=== PATIENT | female | born 1945 | race Caucasian/White ===

== ENCOUNTER → 2016-06-09 | Outpatient (REF) | payer MEDICARE ==
[~2016-06-09] MED LIST: /PRAV20TA OR; /WARF25TA OR; ACET500C OR; ASPI81TA83 OR; GLUC1000 OR; HCTZ PO; LOPR50TA OR; MULTIVIT OR; TAPENTADOL PO; cipro PO; coumadin; coumadin PO; magnesium PO; potassium PO
[2016-06-09 12:06] LABS: MEAN CORPUSCULAR HEMOGLOBIN 31.8 pg (27.0-33.0); MEAN CORPUSCULAR HGB CONC 33.2 g/dl (32.0-36.5); MEAN CORPUSCULAR VOLUME 95.6 fl (80.0-96.0); RED CELL DISTRIBUTION WIDTH 12.7 % (11.5-14.5); WHITE BLOOD COUNT 6.4 K/mm3 (4.0-10.0)
[2016-06-09 12:36] LABS: ALBUMIN 3.6 GM/DL (3.2-5.2); ALBUMIN/GLOBULIN RATIO 1.13 (1.00-1.93); ALKALINE PHOSPHATASE 60 U/L (45-117); ALT/SGPT 25 U/L (12-78); ANION GAP 9 MEQ/L (8-16); AST/SGOT 20 U/L (15-37); BILIRUBIN,TOTAL 0.6 MG/DL (0.2-1.0); BLOOD UREA NITROGEN 13 MG/DL (7-18); CALCIUM LEVEL 8.4 MG/DL (8.8-10.2); CARBON DIOXIDE LEVEL 30 MEQ/L (21-32); CHLORIDE LEVEL 104 MEQ/L (98-107); CHOLESTEROL LEVEL 141 MG/DL (<200); CREATININE FOR GFR 0.95 MG/DL (0.55-1.02); GLOMERULAR FILTRATION RATE > 60.0 (>39); GLUCOSE, FASTING 105 MG/DL (83-110); POTASSIUM SERUM 3.9 MEQ/L (3.5-5.1); SODIUM LEVEL 143 MEQ/L (136-145); TOTAL PROTEIN 6.8 GM/DL (6.4-8.2); TRIGLYCERIDES LEVEL 71 MG/DL (<150)
== END ==
LOC: M LABDRAW1 11:36
PROVIDERS: ATTEND Nurse Practitioner Family
DX: E78.5 Hyperlipidemia, unspecified (principal); I10 Essential (primary) hypertension; D53.9 Nutritional anemia, unspecified; E11.9 Type 2 diabetes mellitus without complications

== ENCOUNTER → 2016-07-14 | Outpatient (REF) | payer MEDICARE ==
[2016-07-14 13:03] LABS: ALBUMIN 3.5 GM/DL (3.2-5.2); ALBUMIN/GLOBULIN RATIO 1.25 (1.00-1.93); BILIRUBIN,TOTAL 0.5 MG/DL (0.2-1.0); CALCIUM LEVEL 8.2 MG/DL (8.8-10.2); GLOMERULAR FILTRATION RATE 57.9 (>39); POTASSIUM SERUM 3.9 MEQ/L (3.5-5.1); TOTAL PROTEIN 6.3 GM/DL (6.4-8.2)
== END ==
LOC: M LABDRAW1 11:21
PROVIDERS: ATTEND Nurse Practitioner Family
DX: E78.4 Other hyperlipidemia (principal); I10 Essential (primary) hypertension; E11.9 Type 2 diabetes mellitus without complications

== ENCOUNTER → 2017-02-10 | Outpatient (REF) | payer MEDICARE ==
[2017-02-10 12:32] LABS: MEAN CORPUSCULAR HEMOGLOBIN 31.5 pg (27.0-33.0); MEAN CORPUSCULAR HGB CONC 32.6 g/dl (32.0-36.5); MEAN CORPUSCULAR VOLUME 96.6 fl (80.0-96.0); PLATELET COUNT, AUTOMATED 177 10^3/uL (150-450); RED CELL DISTRIBUTION WIDTH 13.3 % (11.5-14.5); WHITE BLOOD COUNT 6.4 10^3/uL (4.0-10.0)
[2017-02-10 13:17] LABS: ALBUMIN 3.6 GM/DL (3.2-5.2); ALBUMIN/GLOBULIN RATIO 1.29 (1.00-1.93); BILIRUBIN,TOTAL 0.6 MG/DL (0.2-1.0); CALCIUM LEVEL 8.5 MG/DL (8.8-10.2); CREATININE FOR GFR 1.03 MG/DL (0.55-1.02); GLOMERULAR FILTRATION RATE 55.9 (>39); POTASSIUM SERUM 3.5 MEQ/L (3.5-5.1); TOTAL PROTEIN 6.4 GM/DL (6.4-8.2)
== END ==
LOC: M LABDRAW1 10:29
PROVIDERS: ATTEND Nurse Practitioner Family
DX: I10 Essential (primary) hypertension (principal); E78.00 Pure hypercholesterolemia, unspecified; E11.9 Type 2 diabetes mellitus without complications; E55.9 Vitamin D deficiency, unspecified

== ENCOUNTER → 2017-06-16 | Outpatient (REF) | payer MEDICARE ==
[2017-06-16 13:19] LABS: HEMATOCRIT 41.7 % (36.0-47.0); HEMOGLOBIN 13.7 g/dl (12.0-16.0); MEAN CORPUSCULAR HEMOGLOBIN 31.4 pg (27.0-33.0); MEAN CORPUSCULAR HGB CONC 32.9 g/dl (32.0-36.5); MEAN CORPUSCULAR VOLUME 95.6 fl (80.0-96.0); PLATELET COUNT, AUTOMATED 214 10^3/uL (150-450); RED BLOOD COUNT 4.36 10^6/uL (4.00-5.40); RED CELL DISTRIBUTION WIDTH 13.3 % (11.5-14.5); WHITE BLOOD COUNT 7.2 10^3/uL (4.0-10.0)
[2017-06-16 13:43] LABS: ESTIMATED AVERAGE GLUCOSE 134 MG/DL (60-110); HEMOGLOBIN A1c 6.3 %
[2017-06-16 13:44] LABS: ALBUMIN 3.6 GM/DL (3.2-5.2); ALBUMIN/GLOBULIN RATIO 1.24 (1.00-1.93); ALKALINE PHOSPHATASE 51 U/L (45-117); ALT/SGPT 30 U/L (12-78); ANION GAP 7 MEQ/L (8-16); AST/SGOT 23 U/L (7-37); BILIRUBIN,TOTAL 0.6 MG/DL (0.2-1.0); BLOOD UREA NITROGEN 16 MG/DL (7-18); CALCIUM LEVEL 8.4 MG/DL (8.8-10.2); CARBON DIOXIDE LEVEL 31 MEQ/L (21-32); CHLORIDE LEVEL 106 MEQ/L (98-107); CHOLESTEROL LEVEL 118 MG/DL (<200); CHOLESTEROL RISK RATIO 1.903 (<5); CPK CREATINE PHOSPHOKINASE 190 U/L (26-192); CREATININE FOR GFR 0.95 MG/DL (0.55-1.30); GLOMERULAR FILTRATION RATE > 60.0 (>39); GLUCOSE, FASTING 108 MG/DL (70-100); HDL CHOLESTEROL 62 MG/DL (>40); LDL CHOLESTEROL 38.6 MG/DL (<100); NON-HDL-C 56 MG/DL; POTASSIUM SERUM 3.7 MEQ/L (3.5-5.1); SODIUM LEVEL 144 MEQ/L (136-145); TOTAL PROTEIN 6.5 GM/DL (6.4-8.2); TRIGLYCERIDES LEVEL 87 MG/DL (<150)
== END ==
LOC: M LABDRAW1 12:51
DX: E78.00 Pure hypercholesterolemia, unspecified (principal); I10 Essential (primary) hypertension; E11.9 Type 2 diabetes mellitus without complications
CPT/HCPCS: 82550

== ENCOUNTER → 2018-05-27 | Outpatient (REF) | payer MEDICARE ==
[2018-05-27 12:54] LABS: ALBUMIN 3.8 GM/DL (3.2-5.2); ALT/SGPT 35 U/L (12-78); BILIRUBIN,TOTAL 0.7 MG/DL (0.2-1.0); BLOOD UREA NITROGEN 20 MG/DL (7-18); CALCIUM LEVEL 8.7 MG/DL (8.8-10.2); CARBON DIOXIDE LEVEL 31 MEQ/L (21-32); CHLORIDE LEVEL 104 MEQ/L (98-107); CHOLESTEROL LEVEL 127 MG/DL (<200); CHOLESTEROL RISK RATIO 1.895 (<5); CREATININE FOR GFR 0.96 MG/DL (0.55-1.30); GLOMERULAR FILTRATION RATE > 60.0 (>39); GLUCOSE, FASTING 127 MG/DL (70-100); HDL CHOLESTEROL 67 MG/DL (>40); LDL CHOLESTEROL 45 MG/DL (<100); NON-HDL-C 60 MG/DL; POTASSIUM SERUM 3.8 MEQ/L (3.5-5.1); SODIUM LEVEL 142 MEQ/L (136-145); TOTAL PROTEIN 6.6 GM/DL (6.4-8.2); TRIGLYCERIDES LEVEL 74 MG/DL (<150)
[2018-05-27 13:54] LABS: HEMOGLOBIN A1c 6.2 %
== END ==
LOC: M LABDRAW1 09:12
PROVIDERS: ATTEND Family Medicine
DX: E11.9 Type 2 diabetes mellitus without complications (principal); E78.2 Mixed hyperlipidemia; I10 Essential (primary) hypertension

== ENCOUNTER → 2018-06-14 | Outpatient (REF) | payer MEDICARE ==
[2018-06-14 13:23] LABS: CREATININE, URINE 64.2 MG/DL; MALB URINE SIEMENS 25.2 MG/L; MAU/CREAT RATIO 39.2 MCG/MG (0.0-30.0)
== END ==
LOC: M SFHCPLAZ 11:27
PROVIDERS: ATTEND Family Medicine
DX: E83.51 Hypocalcemia (principal); E11.9 Type 2 diabetes mellitus without complications
CPT/HCPCS: 36415; 82043; 82330; G0463

== ENCOUNTER → 2019-02-15 | Outpatient (REF) | payer MEDICARE ==
[~2019-02-15] MED LIST changes: -/PRAV20TA OR; -/WARF25TA OR; +COUM1TAB18 OR; +PRAV1TAB39 OR
[2019-02-15 15:44] LABS: CALCIUM LEVEL 9.2 MG/DL (8.8-10.2); CREATININE FOR GFR 1.06 MG/DL (0.55-1.30); GLOMERULAR FILTRATION RATE 53.8 (>39); POTASSIUM SERUM 3.7 MEQ/L (3.5-5.1)
[2019-02-15 15:55] LABS: TOTAL 25(OH) VITAMIN D 18.8 NG/ML (30.0-100.0)
[2019-02-15 16:27] LABS: MALB URINE SIEMENS 61.5 MG/L; MAU/CREAT RATIO 30.5 MCG/MG (0.0-30.0)
== END ==
LOC: M SFHCPLAZ 13:46
PROVIDERS: ATTEND Family Medicine
DX: E11.9 Type 2 diabetes mellitus without complications (principal); I10 Essential (primary) hypertension; R80.9 Proteinuria, unspecified; E83.51 Hypocalcemia
CPT/HCPCS: 36415; 80048; 82043; 82306; 83036; G0463

== ENCOUNTER → 2019-08-08 | Outpatient (REF) | payer MEDICARE ==
[2019-08-08 13:47] LABS: CALCIUM LEVEL 9.3 MG/DL (8.8-10.2); CREATININE FOR GFR 0.98 MG/DL (0.55-1.30); GLOMERULAR FILTRATION RATE 58.7 (>39); POTASSIUM SERUM 3.8 MEQ/L (3.5-5.1)
[2019-08-08 13:59] LABS: MALB URINE SIEMENS 73.7 MG/L; MAU/CREAT RATIO 58.9 MCG/MG (0.0-30.0)
[2019-08-08 15:03] LABS: HEMOGLOBIN A1c 6.1 %
== END ==
LOC: M SFHCPLAZ 11:02
PROVIDERS: ATTEND Family Medicine
DX: E11.9 Type 2 diabetes mellitus without complications (principal); I10 Essential (primary) hypertension

== ENCOUNTER → 2020-02-08 | Outpatient (REF) | payer MEDICARE ==
[2020-02-08 14:34] LABS: BLOOD UREA NITROGEN 18 MG/DL (7-18); CALCIUM LEVEL 9.3 MG/DL (8.8-10.2); CARBON DIOXIDE LEVEL 33 MEQ/L (21-32); CHLORIDE LEVEL 105 MEQ/L (98-107); CHOLESTEROL LEVEL 133 MG/DL (<200); CHOLESTEROL RISK RATIO 1.821 (<5); CREATININE FOR GFR 0.89 MG/DL (0.55-1.30); GLOMERULAR FILTRATION RATE > 60.0 (>39); GLUCOSE, FASTING 80 MG/DL (70-100); HDL CHOLESTEROL 73 MG/DL (>40); LDL CHOLESTEROL 43 MG/DL (<100); NON-HDL-C 60 MG/DL; POTASSIUM SERUM 3.8 MEQ/L (3.5-5.1); SODIUM LEVEL 143 MEQ/L (136-145); TRIGLYCERIDES LEVEL 85 MG/DL (<150)
== END ==
LOC: M SFHCPLAZ 11:13
PROVIDERS: ATTEND Family Medicine
DX: E78.2 Mixed hyperlipidemia (principal); E11.9 Type 2 diabetes mellitus without complications; I10 Essential (primary) hypertension; R80.9 Proteinuria, unspecified
CPT/HCPCS: 36415; 80048; 80061; G0463

== ENCOUNTER → 2020-04-17 | Outpatient (REF) | payer MEDICARE ==
[2020-04-17 17:24] LABS: HEMOGLOBIN A1c 5.7 %
[2020-04-17 17:27] LABS: BLOOD UREA NITROGEN 13 MG/DL (7-18); CALCIUM LEVEL 9.1 MG/DL (8.8-10.2); CARBON DIOXIDE LEVEL 32 MEQ/L (21-32); CHLORIDE LEVEL 105 MEQ/L (98-107); CREATININE FOR GFR 0.89 MG/DL (0.55-1.30); GLOMERULAR FILTRATION RATE > 60.0 (>39); GLUCOSE, FASTING 94 MG/DL (70-100); POTASSIUM SERUM 4.3 MEQ/L (3.5-5.1); SODIUM LEVEL 142 MEQ/L (136-145)
== END ==
LOC: M SFHCPLAZ 14:03
PROVIDERS: ATTEND Family Medicine
DX: E11.9 Type 2 diabetes mellitus without complications (principal); I10 Essential (primary) hypertension
CPT/HCPCS: 36415; 80048; 83036; G0463

== ENCOUNTER → 2020-08-23 | Outpatient (REF) | payer MEDICARE ==
[2020-08-23 12:30] LABS: BLOOD UREA NITROGEN 14 MG/DL (7-18); CALCIUM LEVEL 9.7 MG/DL (8.8-10.2); CARBON DIOXIDE LEVEL 33 MEQ/L (21-32); CHLORIDE LEVEL 107 MEQ/L (98-107); GLOMERULAR FILTRATION RATE > 60.0 (>39); GLUCOSE, FASTING 93 MG/DL (70-100); POTASSIUM SERUM 4.3 MEQ/L (3.5-5.1); SODIUM LEVEL 140 MEQ/L (136-145)
[2020-08-23 12:44] LABS: HEMOGLOBIN A1c 5.7 %
== END ==
LOC: M PLALAB 10:59
PROVIDERS: ATTEND Family Medicine
DX: E11.9 Type 2 diabetes mellitus without complications (principal); I10 Essential (primary) hypertension

== ENCOUNTER → 2020-10-02 | Outpatient (CLI) | payer MEDICARE ==
[~2020-10-02] MED LIST changes: +ISOVUE-300 61% 50ML VIAL As Ordered ONE; +LIDOCAINE 1% MDV 20ML VIAL As Ordered ONE; +TRIAMCINOLONE ACETONIDE SUSP 40 MG/ML VIAL (J3301) As Ordered ONE
--- NOTE | 2020-10-02 17:18 | REP ---
INDICATION: UNILATERAL PRIMARY OSTEOARTHRITIS, LEFT HIP. COMPARISON: None TECHNIQUE: The procedure was performed by EM Baxter, under the direct supervision of Dr. Ferguson. The benefits and risks of the procedure were explained to the patient, and an informed consent was obtained. Directly prior to the start of the procedure, a formal time-out was completed in the procedure room. The left femoral neck joint space was localized using fluoroscopic guidance. The skin was prepped and draped in a sterile fashion. Approximately 5 mL of 1% Lidocaine 10 mg/ml was used as a local anesthetic. Using fluoroscopic guidance, a #22 gauge spinal needle was inserted and advanced into the left femoral neck joint space. Approximately 1 mL of Isovue 300 was injected to verify placement. Six mL of a solution containing 5 mL 1% lidocaine 10 mg/ml and 1 mL Kenalog 40 milligrams/milliliter was injected into the joint space. The needle was removed and hemostasis was achieved. FINDINGS: The patient tolerated the procedure well and there were no immediate complications. IMPRESSION: 1. Fluoroscopically guided left hip intra-articular joint injection. 0.1 minutes of fluoroscopy time was utilized for this procedure. Some fluoroscopic images are performed with last image hold technology. These images require no additional radiation. <Electronically signed by Demetria Marrero > 10/02/20 1500 <Electronically signed by Anthony Ferguson > 10/02/20 8130
== END ==
LOC: M RADPRO 12:49
PROVIDERS: ATTEND Orthopaedic Surgery
DX: M16.12 Unilateral primary osteoarthritis, left hip (principal)
CPT/HCPCS: 20610; 77002; J3301; Q9967

== ENCOUNTER → 2020-12-30 | Outpatient (CLI) | payer MEDICARE ==
[~2020-12-30] MED LIST changes: +ASPI81TA26 PO; +FLON1SPR; -ISOVUE-300 61% 50ML VIAL As Ordered ONE; -LIDOCAINE 1% MDV 20ML VIAL As Ordered ONE; +LISI-898 PO; +METF10004 PO; +METO50TA7 PO; +SIMV40TA20 PO; -TRIAMCINOLONE ACETONIDE SUSP 40 MG/ML VIAL (J3301) As Ordered ONE
[2020-12-30 13:44] LABS: HEMATOCRIT 46.6 % (36.0-47.0); HEMOGLOBIN 14.9 g/dl (12.0-15.5); MEAN CORPUSCULAR HEMOGLOBIN 31.2 pg (27.0-33.0); MEAN CORPUSCULAR VOLUME 97.7 fl (80.0-96.0); PLATELET COUNT, AUTOMATED 213 10^3/uL (150-450); RED BLOOD COUNT 4.77 10^6/uL (4.00-5.40); WHITE BLOOD COUNT 8.9 10^3/uL (4.0-10.0)
[2020-12-30 15:24] LABS: BLOOD UREA NITROGEN 14 MG/DL (7-18); CALCIUM LEVEL 9.1 MG/DL (8.8-10.2); CARBON DIOXIDE LEVEL 31 MEQ/L (21-32); CHLORIDE LEVEL 107 MEQ/L (98-107); CREATININE FOR GFR 0.87 MG/DL (0.55-1.30); GLOMERULAR FILTRATION RATE > 60.0 (>39); GLUCOSE, FASTING 85 MG/DL (70-100); POTASSIUM SERUM 4.4 MEQ/L (3.5-5.1); SODIUM LEVEL 143 MEQ/L (136-145)
== END ==
LOC: M PLALAB 10:44
PROVIDERS: ATTEND Family Medicine
DX: Z01.818 Encounter for other preprocedural examination (principal); E11.9 Type 2 diabetes mellitus without complications
CPT/HCPCS: 36415; 80048; 83036; 85027; 93005; G0463

== ENCOUNTER → 2021-01-04 | Outpatient (CLI) | payer MEDICARE | LOC: M LABSMTC 11:17 | PROVIDERS: ATTEND Anesthesiology | DX: Z20.828 Contact with and (suspected) exposure to other viral communicable diseases (principal); Z11.59 Encounter for screening for other viral diseases ==

== ENCOUNTER 2021-01-09 06:38 | Day surgery (SDC) | payer MEDICARE ==
[~2021-01-09] VITALS: Ht 160 cm; Wt 80.6 kg
[~2021-01-09 06:38] MED LIST changes: +CYCLOPENTOLATE 1% OPHTH SOLN 2 ML BTL OD SCH; +FLURBIPROFEN 0.03% OPHTH SOLN 2.5 ML OD SCH; +PHENYLEPHRINE 2.5% OPHTH SOL 2ML OD SCH; +PHENYLEPHRINE HCL 10 % OPHTH. SOL 5ML OD ONE
[2021-01-09] MEDS ORDERED: LIDOCAINE 1% SDV 5ML VIAL As Ordered ONE (06:46)
[2021-01-09] MEDS ORDERED: LR 1,000 ML IV SCH (07:00)
[2021-01-09] MEDS: TETRACAINE 0.5% OPHTH SOLN 4ML OD SCH ×2 (07:09→07:15)
[2021-01-09] MEDS ORDERED: DUOVISC (0.50ML VISCOAT/0.85ML PROVISC) OPHTH KIT As Ordered ONE (07:30)
[2021-01-09] MEDS ORDERED: METOPROLOL TART 25 MG TABLET PO ONE (07:30)
[2021-01-09] MEDS ORDERED: MAXITROL OPHTH SUSP 5 ML As Ordered ONE (07:31)
[2021-01-09 07:49] VITALS: BP 220/106
[2021-01-09] MEDS ORDERED: MIDAZOLAM INJ 2MG/2ML VIAL (J2250 PER 1MG) As Ordered ONE (08:29)
[2021-01-09] MEDS ORDERED: fentaNYL 100 MCG/2 ML INJECTION (J3010) As Ordered ONE (08:29)
[2021-01-09 10:35] VITALS: BP 200/89
--- NOTE | 2021-01-09 16:18 | ROOPDOC ---
[facility] Report Of Operation Report of Operation PREPROCEDURE DIAGNOSES: Cataract right eye. POSTPROCEDURE DIAGNOSES: Same. PROCEDURE PERFORMED: Cataract extraction with intraocular lens implantation right eye. SURGEON: Sunil Garcia MD ELDER ASSISTANT: None ANESTHESIA: local with intravenous sedation ESTIMATED BLOOD LOSS: None. COMPLICATIONS: None. SPECIMENS REMOVED: None DESCRIPTION OF PROCEDURE: The patient was brought to the operating room and prepped and draped in the usual sterile fashion and an eyelid speculum was inserted in the right eye. A paracentesis was made and the anterior chamber was inflated with non-preserved lidocaine. This was followed by injection of Viscoat. A groove was made in the temporal clear cornea which was tunneled forward with the crescent blade and the anterior chamber was entered with a 2.75 keratome. The cystotome was used to make an incision in the center of the capsule and a continuous curvilinear capsulorhexis was created. The lens was hydrodissected until it was found to rotate freely within the capsular bag. Phacoemulsification was then used to remove the lens in its entirety. Irrigation and aspiration were used to remove residual cortical material. The anterior chamber and capsular bag were reinflated with Provisc and a 19.5 diopter SN60AT lens was injected into the capsular bag using the [place] injector. The lens was dialed into place using the [place] hook. Irrigation and aspiration were used to remove residual viscoelastic. The wound was stromally hydrated until was found to be watertight and the eye was in an appropriate pressure. The eyelid speculum was removed from the eye and Maxitrol drops were placed over the right eye. The patient was transferred to the recovery room in stable condition and will follow up tomorrow. The total CDE was 10.86 SUNIL GARCIA MD Jan 09, 2021 16:18
== END 2021-01-09 10:49 | disposition home or self-care (01) ==
LOC: M SDC 06:38
PROVIDERS: ATTEND Ophthalmology
DX: H25.11 Age-related nuclear cataract, right eye (principal); I10 Essential (primary) hypertension; E78.5 Hyperlipidemia, unspecified; E11.9 Type 2 diabetes mellitus without complications; G43.909 Migraine, unspecified, not intractable, without status migrainosus; Z87.891 Personal history of nicotine dependence; Z79.82 Long term (current) use of aspirin; Z79.84 Long term (current) use of oral hypoglycemic drugs; Z79.899 Other long term (current) drug therapy; Z88.8 Allergy status to other drugs, medicaments and biological substances
CPT/HCPCS: 66984; J2250; J3010; V2632

== ENCOUNTER → 2021-01-28 | Outpatient (REF) | payer MEDICARE ==
[~2021-01-28] MED LIST changes: -CYCLOPENTOLATE 1% OPHTH SOLN 2 ML BTL OD SCH; -FLURBIPROFEN 0.03% OPHTH SOLN 2.5 ML OD SCH; -PHENYLEPHRINE 2.5% OPHTH SOL 2ML OD SCH; -PHENYLEPHRINE HCL 10 % OPHTH. SOL 5ML OD ONE
[2021-01-28 19:07] LABS: MALB URINE SIEMENS 20.3 MG/L; MAU/CREAT RATIO 12.1 MCG/MG (0.0-30.0)
== END ==
LOC: M SFHCWAGY 16:41
PROVIDERS: ATTEND Family Medicine
DX: E11.9 Type 2 diabetes mellitus without complications (principal)
CPT/HCPCS: 82043; G0463

== ENCOUNTER → 2021-03-01 | Outpatient (CLI) | payer MEDICARE | LOC: M LABSMTC 09:26 | PROVIDERS: ATTEND Anesthesiology | DX: Z01.818 Encounter for other preprocedural examination (principal); Z11.52 Encounter for screening for COVID-19 ==

== ENCOUNTER 2021-03-06 11:00 | Day surgery (SDC) | payer MEDICARE ==
[~2021-03-06] VITALS: Ht 160 cm; Wt 81.6 kg
[~2021-03-06 11:00] MED LIST changes: +DUOVISC (0.50ML VISCOAT/0.85ML PROVISC) OPHTH KIT As Ordered ONE; +LIDOCAINE 1% SDV 5ML VIAL As Ordered ONE; +LR 1,000 ML IV SCH; +MAXITROL OPHTH SUSP 5 ML As Ordered ONE; +MIDAZOLAM INJ 2MG/2ML VIAL (J2250 PER 1MG) As Ordered ONE; +fentaNYL 100 MCG/2 ML INJECTION (J3010) As Ordered ONE
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
--- OUTSIDE RECORDS SUMMARY | 2021-03-06 11:04 | CCD ---
Author Author [facility] Organization [facility] Address Unknown Phone Unavailable Care Team Providers Care Masonry Instructor Name Role Phone Fish, B David MCKENZIE Unavailable Unavailable Fish, B David MCKENZIE Unavailable Unavailable Fish, B David MCKENZIE Unavailable Unavailable Fish, B David MCKENZIE Unavailable Unavailable Fish, B David MCKENZIE Unavailable Unavailable Fish, B David MCKENZIE Unavailable Unavailable Fish, B David MCKENZIE Unavailable Unavailable Fish, B David MCKENZIE Unavailable Unavailable Fish, B David MCKENZIE Unavailable Unavailable Fish, B David MCKENZIE Unavailable Unavailable Fish, B David MCKENZIE Unavailable Unavailable Fish, B David MCKENZIE Unavailable Unavailable Fish, B David MCKENZIE Unavailable Unavailable Fish, B David MCKENZIE Unavailable Unavailable Fish, B David MCKENZIE Unavailable Unavailable Fish, B David MCKENZIE Unavailable Unavailable Fish, B David MCKENZIE Unavailable Unavailable Fish, B David MCKENZIE Unavailable Unavailable Fish, B David MCKENZIE Unavailable Unavailable Fish, B David MCKENZIE Unavailable Unavailable Fish, B David MCKENZIE Unavailable Unavailable Fish, B David MCKENZIE Unavailable Unavailable Fish, B David MCKENZIE Unavailable Unavailable Fish, B David MCKENZIE Unavailable Unavailable Fish, B David MCKENZIE Unavailable Unavailable Fish, B David MCKENZIE Unavailable Unavailable Fish, B David MCKENZIE Unavailable Unavailable Fish, B David MCKENZIE Unavailable Unavailable Fish, B David MCKENZIE Unavailable Unavailable Fish, B David MCKENZIE Unavailable Unavailable Fish, B David MCKENZIE Unavailable Unavailable Fish, B David MCKENZIE Unavailable Unavailable Fish, B David MCKENZIE Unavailable Unavailable Fish, B David MCKENZIE Unavailable Unavailable Fish, B David MCKENZIE Unavailable Unavailable Fish, B David MCKENZIE Unavailable Unavailable Fish, B David MCKENZIE Unavailable Unavailable Fish, Quinn Hernandez MD Unavailable Unavailable Fish, Quinn Hernandez MD Unavailable Unavailable Fish, Quinn Hernandez MD Unavailable Unavailable Fish, Quinn Hernandez MD Unavailable Unavailable Fish, Quinn Hernandez MD Unavailable Unavailable Fish, Quinn Hernandez MD Unavailable Unavailable Fish, Quinn Hernandez MD Unavailable Unavailable Fish, Quinn Hernandez MD Unavailable Unavailable Fish, Quinn Hernandez MD Unavailable Unavailable Fish, Quinn Hernandez MD Unavailable Unavailable Fish, B David MCKENZIE Unavailable Unavailable Fish, B David MCKENZIE Unavailable Unavailable Fish, B David MCKENZIE Unavailable Unavailable Fish, B David MCKENZIE Unavailable Unavailable Fish, B David MCKENZIE Unavailable Unavailable Fish, B David MCKENZIE Unavailable Unavailable Fish, B David MCKENZIE Unavailable Unavailable Fish, B David MCKENZIE Unavailable Unavailable Fish, Quinn Hernandez MD Unavailable Unavailable Angel Perla, Truman Duncan MD, FACS Unavailable Unavailable Angel Perla, Truman Duncan MD, FACS Unavailable Unavailable Angel Perla, Truman Duncan MD, FACS Unavailable Unavailable Angel Perla, Truman Duncan MD, FACS Unavailable Unavailable Angel Perla, Truman Duncan MD, FACS Unavailable Unavailable Angel Perla, Truman Duncan MD, FACS Unavailable Unavailable Angel Perla, Truman Duncan MD, FACS Unavailable Unavailable Angel Perla, Truman Duncan MD, FACS Unavailable Unavailable Angel Perla, Truman Duncan MD, FACS Unavailable Unavailable Angel Perla, Truman Duncan MD, FACS Unavailable Unavailable Angel Perla, Truman Duncan MD, FACS Unavailable Unavailable Angel Perla, Truman Duncan MD, FACS Unavailable Unavailable Angel Perla, Truman Duncan MD, FACS Unavailable Unavailable Angel Perla, Truman Duncan MD, FACS Unavailable Unavailable Angel Perla, Truman Duncan MD, FACS Unavailable Unavailable Angel Perla, Truman Duncan MD, FACS Unavailable Unavailable Angel Perla, Truman Duncan MD, FACS Unavailable Unavailable Angel Perla, Truman Duncan MD, FACS Unavailable Unavailable Angel Perla, Truman Duncan MD, FACS Unavailable Unavailable Angel Perla, Truman Duncan MD, FACS Unavailable Unavailable Angel Perla, Truman Duncan MD, FACS Unavailable Unavailable Angel Perla, Truman Duncan MD, FACS Unavailable Unavailable Angel Perla, Truman Duncan MD, FACS Unavailable Unavailable Angel Perla, Truman Duncan MD, FACS Unavailable Unavailable Angel Perla, Truman Duncan MD, FACS Unavailable Unavailable Angel Perla, Truman Duncan MD, FACS Unavailable Unavailable Angel Perla, Truman Duncan MD, FACS Unavailable Unavailable Angel Perla, Truman Duncan MD, FACS Unavailable Unavailable Angel Perla, Truman Duncan MD, FACS Unavailable Unavailable Angel Perla, Truman Duncan MD, FACS Unavailable Unavailable Angel Perla, Truman Duncan MD, FACS Unavailable Unavailable Angel Perla, Truman Duncan MD, FACS Unavailable Unavailable Angel Perla, Truman Duncan MD, FACS Unavailable Unavailable Angel Perla, Truman Duncan MD, FACS Unavailable Unavailable Angel Perla, Truman Duncan MD, FACS Unavailable Unavailable Angel Perla, Truman Duncan MD, FACS Unavailable Unavailable Angel Perla, Truman Duncan MD, FACS Unavailable Unavailable Angel Perla, Truman Duncan MD, FACS Unavailable Unavailable Angel Perla, Truman Duncan MD, FACS Unavailable Unavailable MARLEY, A ART DO Unavailable Unavailable MARLEY, A ART DO Unavailable Unavailable MARLEY, A ART DO Unavailable Unavailable MARLEY, A ART DO Unavailable Unavailable MARLEY, A ART DO Unavailable Unavailable MARLEY, A ART DO Unavailable Unavailable MARLEY, A ART DO Unavailable Unavailable MARLEY, A ART DO Unavailable Unavailable MARLEY, A ART DO Unavailable Unavailable MARLEY, A ART DO Unavailable Unavailable MARLEY, A ART DO Unavailable Unavailable MARLEY, A ART DO Unavailable Unavailable MARLEY, A ART DO Unavailable Unavailable MARLEY, A ART DO Unavailable Unavailable MARLEY, A ART DO Unavailable Unavailable MARLEY, A ART DO Unavailable Unavailable MARLEY, A ART DO Unavailable Unavailable MARLEY, A ART DO Unavailable Unavailable MARLEY, A ART DO Unavailable Unavailable MARLEY, A ART DO Unavailable Unavailable MARLEY, A ART DO Unavailable Unavailable MARLEY, A ART DO Unavailable Unavailable MARLEY, A ART DO Unavailable Unavailable Re-disclosure Warning The records that you are about to access may contain information from federally-assisted alcohol or drug abuse programs. If such information is present, then the following federally mandated warning applies: This information has been disclosed to you from records protected by federal confidentiality rules (42 CFR part 2). The federal rules prohibit you from making any further disclosure of this information unless further disclosure is expressly permitted by the written consent of the person to whom it pertains or as otherwise permitted by 42 CFR part 2. A general authorization for the release of medical or other information is NOT sufficient for this purpose. The Federal rules restrict any use of the information to criminally investigate or prosecute any alcohol or drug abuse patient.The records that you are about to access may contain highly sensitive health information, the redisclosure of which is protected by Article 27-F of the [facility] Public Health law. If you continue you may have access to information: Regarding HIV / AIDS; Provided by facilities licensed or operated by the [facility] Office of Mental Health; or Provided by the [facility] Office for People With Developmental Disabilities. If such information is present, then the following [facility] mandated warning applies: This information has been disclosed to you from confidential records which are protected by state law. State law prohibits you from making any further disclosure of this information without the specific written consent of the person to whom it pertains, or as otherwise permitted by law. Any unauthorized further disclosure in violation of state law may result in a fine or chcf sentence or both. A general authorization for the release of medical or other information is NOT sufficient authorization for further disc losure. Allergies and Adverse Reactions Type Description Substance Reaction Status Data Source(s ) Drug allergy Soma Soma Active GAVI (aSntos Perla MD [facility]) Drug allergy Soma Soma Active GAVI (Santos Perla MD [facility]) Drug allergy Soma Soma Active GAVI (Santos Perla MD [facility]) Encounters Encounter Providers Location Date Indications Data Source(s ) Unknown [address] [facility] [id number] 03/03/2021 12:00:00 AM EST eCW1 (Formerly [facility]) Outpatient [address] [facility] [id number] 02/28/2021 12:00:00 AM EST eCW1 (Formerly [facility]) Unknown [address] [facility] [id number] 01/10/2021 12:00:00 AM EDT eCW1 (Formerly [facility]) Unknown [address] [facility] [id number] 12/31/2020 12:00:00 AM EDT eCW1 (Formerly [facility]) Outpatient [address] [facility] [id number] 12/30/2020 12:00:00 AM EDT eCW1 (Formerly [facility]) Outpatient<td ID="encounterTypeDescripti onID0">TESTING - VISUAL FIELD & OCT</td><td>Art Wilson DO</td><td>Dakota Arevalo MD [facility]</td><td>11/01/2020</td><td>12:58PM</td><td>2:38PM</td><td></td> Attender: ART Masterson MD [facility] 11/01/2020 12:58:00 PM EDT - 11/01/2020 02:38:00 PM EDT GAVI (Dakota burnett MD [facility]) <td ID="encounterTypeDescriptionID1">VIS UAL FIELD 24-2</td><td>Dakota Perla MD, FACS</td><td>Dakota Arevalo MD [facility]</td><td>11/01/2020</td><td>12:57PM</td><td>2:37PM</td><td></td>Outpatient Attender: Dakota Perla MD, FACS Dakota Arevalo MD [facility] 11/01/2020 12:57:0 0 PM EDT - 11/01/2020 02:37:00 PM EDT GAVI (Dakota Perla MD [facility]) Outpatient<td ID="encounterTypeDescripti onID2">Cataract Evaluation</td><td></td><td>Dakota Arevalo MD [facility]</td><td>10/24/2020</td><td>1:12PM</td><td>3:08PM</td><td></td> Dakota Arevalo MD [facility] 10/24/2020 01:12:00 PM EDT - 10/24/2020 03:08:00 PM EDT GAVI (Dakota Perla MD [facility]) Unknown [id number] [facility] [address] 10/07/2020 12:00:00 AM EDT eCW1 (Formerly [facility]) Outpatient<td ID="encounterTypeDescripti onID3">Cataract Evaluation</td><td>Art Wilson DO</td><td>Dakota Arevalo MD [facility]</td><td>09/30/2020</td><td>11:51AM</td><td>12:54PM</td><td><content ID="encounterDiagnosisID3-0">Cataract Senile Cortical Bilateral</content>, <content ID="encounterDiagnosisID3-1">Cataract Senile Nuclear</content>, <content ID="encounterDiagnosisID3-2">Borderline Glaucoma Open Angle with Borderline Findings Both Eyes</content></td> Attender: ART Masterson MD [facility] 09/30/2020 11:51:00 AM EDT - 09/30/2020 12:54:00 PM EDT Borderline Glaucoma Open Angle with Bord debbie Findings Both EyesBorderline Glaucoma Open Angle with Borderline Findings Both EyesCataract Senile NuclearCataract Senile Cortical BilateralCataract Senile NuclearCataract Senile Cortical Bilateral GAVI (Dakota Perla MD [facility]) Borderline Glaucoma Open Angle with Bord debbie Findings Both Eyes Borderline Glaucoma Open Angle with Bord debbie Findings Both Eyes Cataract Senile Nuclear Cataract Senile Cortical Bilateral Cataract Senile Nuclear Cataract Senile Cortical Bilateral Outpatient Attender: David Woodard MD Physical Therapy 09/12/2020 1 0:45:00 AM EDT [facility] ([facility]) Unknown [address] [facility] [place] [id number] 09/03/2020 12:00:00 AM EDT eCW1 ([facility]ly [facility]) Unknown [address] [facility] [place] [id number] 08/27/2020 12:00:00 AM EDT eCW1 (Formerly [facility]) Unknown [address] [facility] [place] [id number] 08/26/2020 12:00:00 AM EDT eCW1 (Formerly [facility]) Outpatient<td ID="encounterTypeDescripti onID4">NEW PATIENT WITH REFERRAL</td><td>Dakota Arevalo MD, FACS</td><td>Dakota Arevalo MD [facility]</td><td>08/14/2020</td><td>9:41AM</td><td>10:42AM</td><td><content ID="encounterDiagnosisID4-0">Cataract Senile Nuclear</content>, <content ID="encounterDiagnosisID4-1">Cataract Senile Cortical Bilateral</content>, <content ID="encounterDiagnosisID4-2">Dry Eye Syndrome Both Eyes</content>, <content ID="encounterDiagnosisID4-3">Vitreous Disorders Degeneration</content>, <content ID="encounterDiagnosisID4-4">Taking Medication For Diabetes Long-term Use of Oral Hypoglycemics</content>, <content ID="encounterDiagnosisID4- 5">Diabetes Mellitus Type 2 Without Complication</content>, <content ID="encounterDiagnosisID4-6">History of Nicotine Dependence</content>, <content ID="encounterDiagnosisID4-7">Essential Hypertension</content>, <content ID="encounterDiagnosisID4-8">Macular Puckering Right Eye</content>, <content ID="encounterDiagnosisID4-9">Retinopathy Hypertensive Both Eyes</content>, <content ID="encounterDiagnosisID4-10">Corneal Dystrophy Endothelial Fuchs' Bilateral Eyes</content></td> Attender: Dakota Perla MD, FACS aDkota Perla MD [facility] 08/14/2020 09:41:00 AM EDT - 08/14/2020 10:42:00 AM ED T Corneal Dystrophy Endothelial Fuchs' Bilateral EyesRetinopathy Hypertensive Both EyesMacular Puckering Right EyeEssential HypertensionHistory of Nicotine DependenceDiabetes Mellitus Type 2 Without ComplicationTaking Medication For Diabetes Long-term Use of Oral HypoglycemicsVitreous Disorders DegenerationDry Eye Syndrome Both EyesCataract Senile Cortical BilateralCataract Senile NuclearCorneal Dystrophy Endothelial Fuchs' Bilateral EyesRetinopathy Hypertensive Both EyesMacular Puckering Right EyeEssential HypertensionHistory of Nicotine DependenceDiabetes Mellitus Type 2 Without ComplicationTaking Medication For Diabetes Long-term Use of Oral HypoglycemicsVitreous Disorders DegenerationDry Eye Syndrome Both EyesCataract Senile Cortical BilateralCataract Senile NuclearCorneal Dystrophy Endothelial Fuchs' Bilateral EyesRetinopathy Hypertensive Both EyesMacular Puckering Right EyeEssential HypertensionHistory of Nicotine DependenceDiabetes Mellitus Type 2 Without ComplicationTaking Medication For Diabetes Long-term Use of Oral HypoglycemicsVitreous Disorders DegenerationDry Eye Syndrome Both EyesCataract Senile Cortical BilateralCataract Senile Nuclear [facility] ([facility]) Corneal Dystrophy Endothelial Fuchs' Candido ateral Eyes 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 Essential Hypertension History of Nicotine Dependence Diabetes Mellitus Type 2 Without Complic ation Taking Medication For Diabetes Long-term Use of Oral Hypoglycemics 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 Cataract Senile Cortical Bilateral Cataract Senile Nuclear Corneal Dystrophy Endothelial Fuchs' Candido ateral Eyes 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 Essential Hypertension History of Nicotine Dependence Diabetes Mellitus Type 2 Without Complic ation Taking Medication For Diabetes Long-term Use of Oral Hypoglycemics 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 Cataract Senile Cortical Bilateral Cataract Senile Nuclear Corneal Dystrophy Endothelial Fuchs' Candido ateral Eyes 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 Essential Hypertension History of Nicotine Dependence Diabetes Mellitus Type 2 Without Complic ation Taking Medication For Diabetes Long-term Use of Oral Hypoglycemics 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 Cataract Senile Cortical Bilateral Cataract Senile Nuclear Outpatient [address] [facility] [id number] 07/30/2020 12:00:00 AM EDT eCW1 (Formerly [facility]) Outpatient [address] [facility] [place] [id number] 04/17/2020 12:00:00 AM EST eCW1 ([facility]) Unknown [address] [facility] [place] [id number] 04/08/2020 12:00:00 AM EST eCW1 ([facility]) Unknown [address] [facility] [place] [address] 2020 12:00:00 AM EST eCW1 (Formerly [facility]) Outpatient [address] [facility] [id number] 02/08/2020 12:00:00 AM EDT eCW1 (Formerly [facility]) Outpatient Attender: David Woodard MD Physical Therapy 01/30/2020 1 0:15:00 AM EDT [facility]IL[facility] ([facility] ) Immunizations Vaccine Date Status Description Data Source(s) COVID-19 dose #2 given elsewhere Unspecified 07/19/2020 02:1 3:00 PM EDT completed eCW1 ([facility]) COVID-19 dose #2 given elsewhere Unspecified 07/19/2020 02:1 3:00 PM EDT completed eCW1 ([facility]) COVID-19 dose #2 given elsewhere Unspecified 07/19/2020 02:1 3:00 PM EDT completed eCW1 ([facility]) COVID-19 dose #2 given elsewhere Unspecified 07/19/2020 02:1 3:00 PM EDT completed eCW1 ([facility]) COVID-19 dose #2 given elsewhere Unspecified 07/19/2020 02:1 3:00 PM EDT completed eCW1 ([facility]) COVID-19 dose #2 given elsewhere Unspecified 07/19/2020 02:1 3:00 PM EDT completed eCW1 ([facility]) COVID-19 dose #2 given elsewhere Unspecified 07/19/2020 02:1 3:00 PM EDT completed eCW1 ([facility]) COVID-19 dose #2 given elsewhere Unspecified 07/19/2020 02:1 3:00 PM EDT completed eCW1 ([facility]) COVID-19 dose #2 given elsewhere Unspecified 07/19/2020 02:1 3:00 PM EDT completed eCW1 ([facility]) COVID-19 dose #2 given elsewhere Unspecified 07/19/2020 02:1 3:00 PM EDT completed eCW1 ([facility]) COVID-19 VACCINE Pfizer 07/19/2020 12:00:00 AM EDT completed [employer] Vaccine Series Complete: YESThis Data wa s Submitted to [facility] Via [employer]. COVID-19 dose #1 given elsewhere Unspecified 06/28/2020 02:1 2:00 PM EST completed eCW1 ([facility]) COVID-19 dose #1 given elsewhere Unspecified 06/28/2020 02:1 2:00 PM EST completed eCW1 ([facility]) COVID-19 dose #1 given elsewhere Unspecified 06/28/2020 02:1 2:00 PM EST completed eCW1 ([facility]) COVID-19 dose #1 given elsewhere Unspecified 06/28/2020 02:1 2:00 PM EST completed eCW1 ([facility]) COVID-19 dose #1 given elsewhere Unspecified 06/28/2020 02:1 2:00 PM EST completed eCW1 ([facility]) COVID-19 dose #1 given elsewhere Unspecified 06/28/2020 02:1 2:00 PM EST completed eCW1 ([facility]) COVID-19 dose #1 given elsewhere Unspecified 06/28/2020 02:1 2:00 PM EST completed eCW1 ([facility]) COVID-19 dose #1 given elsewhere Unspecified 06/28/2020 02:1 2:00 PM EST completed eCW1 ([facility]) COVID-19 dose #1 given elsewhere Unspecified 06/28/2020 02:1 2:00 PM EST completed eCW1 ([facility]) COVID-19 dose #1 given elsewhere Unspecified 06/28/2020 02:1 2:00 PM EST completed eCW1 ([facility]) COVID-19 VACCINE Pfizer 06/28/2020 12:00:00 AM EST completed [employer] Vaccine Series Complete: NOThis Data was Submitted to [facility] Via [employer]. Medications Medication Brand Name Start Date Product Form Dose Route Admi nistrative Instructions Pharmacy Instructions Status Indications Reaction Description Data Source(s) Hydrochlorothiazide 25 MG / Lisinopril 2 0 MG Oral Tablet Lisinopril- hydroCHLOROthiazide 20-25 MG Lisinopril-hydroCHLOROthiazide 20-25 MG 02/28/2021 12:00:00 AM EST 1.0 {tablet} active Lisinopril-hydroCHLOROthiazide 20-25 MG [facility] Hydrochlorothiazide 25 MG / Lisinopril 2 0 MG Oral Tablet Lisinopril- hydroCHLOROthiazide 20-25 MG Lisinopril-hydroCHLOROthiazide 20-25 MG 02/28/2021 12:00:00 AM EST 1.0 {tablet} active Lisinopril-hydroCHLOROthiazide 20-25 MG eCW1 ([facility]) Blood Pressure Cuff - Blood Pressure Cuff - 01/28/2021 12:00:00 AM EDT active Blood Pressure Cuff - [facility]CW1 ( [facility]) Blood Pressure Cuff - Blood Pressure Cuff - 01/28/2021 12:00:00 AM EDT active Blood Pressure Cuff - [facility]CW1 ( [facility]) Lisinopril 20 MG Oral Tablet Lisinopril 20 MG Oral Tablet 12:00:00 AM EDT 1 active lisinopril 20 MG Oral Tablet GAVI (Dakota Perla MD [facility]) Metoprolol Tartrate 50 MG Oral Tablet Metoprolol Tartrate 50 MG Oral Tablet 08/15/2020 12:00:00 AM EDT 1 active metoprolol tartrate 50 MG Oral Tablet GAVI (Dakota Perla MD [facility]) Simvastatin 40 MG Oral Tablet Simvastatin 40 MG Oral Tablet 08/14/2020 12:00:00 AM EDT 1 active simvastatin 40 MG Oral Tablet GAVI (Dakota Perla MD [facility]) Calcium + D3 600-800 MG-UNIT Oral Tablet Calcium + D3 600-800 MG-UNIT Oral Tablet 08/14/2020 12:00:00 AM EDT 1 active Calcium + D3 GAVI (Dakota Perla MD [facility]) Aspirin 81 MG Delayed Release Oral Table t Adult Aspirin EC Low Strength 81 MG Oral Tablet Delayed Release Adult Aspirin EC Low Strength 81 MG Oral Tablet Delayed Release 08/14/2020 12:00:00 AM EDT 1 ac tive aspirin 81 MG Delayed Release Oral Tablet GAVI (Dakota Perla MD [facility]) 24 HR metoprolol succinate 50 MG Extende d Release Oral Tablet Metoprolol Succinate ER 50 MG Oral Tablet Extended Release 24 Hour Metoprolol Succinate ER 50 MG Oral Tablet Extended Release 24 Hour 08/14/2020 12:00:00 AM EDT 1 aborted 24 HR metoprolol succinate 50 MG Extended Release Oral Tablet GAVI (Dakota Perla MD [facility]) Metformin hydrochloride 1000 MG Oral Tablet metFORMIN HCl 1000 MG Oral Tablet metFORMIN HCl 1000 MG Oral Tablet 08/14/2020 12:00:00 AM EDT 1 active metformin hydrochloride 1000 MG Oral Tablet GAVI ( Dakota Perla MD [facility]) Fluticasone Propionate 50 MCG/ACT Fluticasone Propionate 50 MCG/ACT 07/30/2020 12:00:00 AM EDT 1.0 {spray_in_each_nostril} acti ve Fluticasone Propionate 50 MCG/ACT [facility] ([facility]) Fluticasone Propionate 50 MCG/ACT Fluticasone Propionate 50 MCG/ACT 07/30/2020 12:00:00 AM EDT 1.0 {spray_in_each_nostril} acti ve Fluticasone Propionate 50 MCG/ACT eCW1 ([facility]) Fluticasone Propionate 50 MCG/ACT Fluticasone Propionate 50 MCG/ACT 07/30/2020 12:00:00 AM EDT 1.0 {spray_in_each_nostril} acti ve Fluticasone Propionate 50 MCG/ACT eCW1 ([facility]) Fluticasone Propionate 50 MCG/ACT Fluticasone Propionate 50 MCG/ACT 07/30/2020 12:00:00 AM EDT 1.0 {spray_in_each_nostril} acti ve Fluticasone Propionate 50 MCG/ACT eCW1 ([facility]) Fluticasone Propionate 50 MCG/ACT Fluticasone Propionate 50 MCG/ACT 07/30/2020 12:00:00 AM EDT 1.0 {spray_in_each_nostril} acti ve Fluticasone Propionate 50 MCG/ACT eCW1 ([facility]) Fluticasone Propionate 50 MCG/ACT Fluticasone Propionate 50 MCG/ACT 07/30/2020 12:00:00 AM EDT 1.0 {spray_in_each_nostril} acti ve Fluticasone Propionate 50 MCG/ACT eCW1 ([facility]) Fluticasone Propionate 50 MCG/ACT Fluticasone Propionate 50 MCG/ACT 07/30/2020 12:00:00 AM EDT 1.0 {spray_in_each_nostril} acti ve Fluticasone Propionate 50 MCG/ACT eCW1 ([facility]) Fluticasone Propionate 50 MCG/ACT Fluticasone Propionate 50 MCG/ACT 07/30/2020 12:00:00 AM EDT 1.0 {spray_in_each_nostril} acti ve Fluticasone Propionate 50 MCG/ACT eCW1 ([facility]) Fluticasone Propionate 50 MCG/ACT Fluticasone Propionate 50 MCG/ACT 07/30/2020 12:00:00 AM EDT 1.0 {spray_in_each_nostril} acti ve Fluticasone Propionate 50 MCG/ACT eCW1 ([facility]) Fluticasone Propionate 50 MCG/ACT Fluticasone Propionate 50 MCG/ACT 07/30/2020 12:00:00 AM EDT 1.0 {spray_in_each_nostril} acti ve Fluticasone Propionate 50 MCG/ACT [facility] Lisinopril 20 MG Oral Tablet Lisinopril 20 MG 02/08/2020 12:00:00 A M EDT 1.0 {tablet} active Lisinopril 20 MG [facility] Lisinopril 20 MG Oral Tablet Lisinopril 20 MG 02/08/2020 12:00:00 A M EDT 1.0 {tablet} active Lisinopril 20 MG [facility]1 ( [facility] Lisinopril 20 MG Oral Tablet Lisinopril 20 MG 02/08/2020 12:00:00 A M EDT 1.0 {tablet} active Lisinopril 20 MG [facility]CW1 [facility] Lisinopril 20 MG Oral Tablet Lisinopril 20 MG 02/08/2020 12:00:00 A M EDT 1.0 {tablet} active Lisinopril 20 MG eCW1 ( [facility]) Insurance Providers Payer name Policy type / Coverage type Policy ID Covered constitution party ID Covered constitution party's relationship to louie Policy Louie Plan Information MEDICARE [id number] SP [id number] A Medicare Part B [facility] Other 0 [id number] Self 0 Medicare Part B of [facility] Other 0 [id number] Self 0 Medicare Part B of [facility] Other 0 [id number] Self 0 MEDICARE C [id number] S [id number] MEDICARE C [id number] S [id number] A ANSI-Medicare Part B [id number] ANSI-Medicare Part B [id number] ANSI-Medicare Part B [id number] ANSI-Medicare Part B [id number] ANSI-Medicare Part B [id number] ANSI-Medicare Part B [id number] MEDICARE [id number] SP [id number] A Problems, Conditions, and Diagnoses Code Display Name Description Problem Type Effective Dates Data Source(s) H25.11 [id number] Age-related nuclear cataract, right ey e Problem 12/30/2020 12:00:00 AM EDT [facility]) H25.12 [id number] Age-related nuclear cataract, left eye Problem 12/30/2020 12:00:00 AM EDT eCW1 [facility]) 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 Vitreous Disorders Deg eneration Problem 08/14/2020 12:00:00 AM EDT GAVI (Dakota Perla MD [facility]) 25450670 Dry Eye Syndrome Both Eyes Dry Eye Syndrome Both Eyes Problem 08/14/2020 12:00:00 AM EDT GAVI (Dakota Perla MD [facility]) 366.16 Cataract Senile Nuclear Cataract Senile Nuclear Proble m 08/14/2020 12:00:00 AM EDT GAVI (Dakota Perla MD [facility]) 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 Problem 08/14/2020 12:00:00 AM EDT GAVI (Dakota Perla MD [facility]) [id number] Retinopathy Hypertensive Both Eyes Retinopathy H ypertensive Both Eyes Problem 08/14/2020 12:00:00 AM EDT GAVI (Dakota burnett MD [facility]) 401.9 Essential Hypertension Essential Hypertension Problem 08/14/2020 12:00:00 AM EDT GAVI (Dakota Perla MD [facility]) [id number] History of Nicotine Dependence History of Nicotine Dep endence Problem 08/14/2020 12:00:00 AM EDT GAVI (Dakota Perla MD [facility]) 250.00 Diabetes Mellitus Type 2 Without Complic ation Diabetes Mellitus Type 2 Without Complication Problem 08/14/2020 12:00:00 AM EDT GAVI (Santos Perla MD [facility]) 366.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 Cataract Janice le Cortical Bilateral Problem 08/14/2020 12:00:00 AM EDT GAVI (Dakota burnett MD [facility]) Z79.84 Taking Medication For Diabetes Long-term Use of Oral Hypoglycemics Taking Medication For Diabetes Long-term Use of Oral Hypoglycemics Problem 08/14/2020 12:00:00 AM EDT GAVI (Dakota Perla MD [facility]) [id number] 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 Problem 08/14/2020 12:00:00 AM EDT GAVI (Monica Perla MD [facility]) 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 Vitreous Disorders Deg eneration Problem 08/14/2020 12:00:00 AM EDT GAVI (Dakota Perla MD [facility]) [id number] Dry Eye Syndrome Both Eyes Dry Eye Syndrome Both Eyes Problem 08/14/2020 12:00:00 AM EDT GAVI (Dakota Perla MD [facility]) 366.16 Cataract Senile Nuclear Cataract Senile Nuclear Proble m 08/14/2020 12:00:00 AM EDT GAVI (Dakota Perla MD [facility]) 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 Problem 08/14/2020 12:00:00 AM EDT GAVI (Dakota Perla MD [facility]) 84920654 Retinopathy Hypertensive Both Eyes Retinopathy H ypertensive Both Eyes Problem 08/14/2020 12:00:00 AM EDT GAVI (Dakota burnett MD [facility]) 401.9 Essential Hypertension Essential Hypertension Problem 08/14/2020 12:00:00 AM EDT GAVI (Dakota Perla MD [facility]) [id number] History of Nicotine Dependence History of Nicotine Dep endence Problem 08/14/2020 12:00:00 AM EDT GAVI (Dakota Perla MD [facility]) 250.00 Diabetes Mellitus Type 2 Without Complic ation Diabetes Mellitus Type 2 Without Complication Problem 08/14/2020 12:00:00 AM EDT GAVI (Santos Perla MD [facility]) 366.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 Cataract Janice le Cortical Bilateral Problem 08/14/2020 12:00:00 AM EDT GAVI (Dakota burnett MD [facility]) Z79.84 Taking Medication For Diabetes Long-term Use of Oral Hypoglycemics Taking Medication For Diabetes Long-term Use of Oral Hypoglycemics Problem 08/14/2020 12:00:00 AM EDT GAVI (Dakota Perla MD [facility]) 551034846 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 Problem 08/14/2020 12:00:00 AM EDT GAVI (Monica Perla MD [facility]) 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 Vitreous Disorders Deg eneration Problem 08/14/2020 12:00:00 AM EDT GAVI (Dakota Perla MD [facility]) 92168117 Dry Eye Syndrome Both Eyes Dry Eye Syndrome Both Eyes Problem 08/14/2020 12:00:00 AM EDT GAVI (Dakota Perla MD [facility]) 366.16 Cataract Senile Nuclear Cataract Senile Nuclear Proble m 08/14/2020 12:00:00 AM EDT GAVI (Dakota Perla MD [facility]) 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 Problem 08/14/2020 12:00:00 AM EDT GAVI (Dakota Perla MD [facility]) 96628450 Retinopathy Hypertensive Both Eyes Retinopathy H ypertensive Both Eyes Problem 08/14/2020 12:00:00 AM EDT GAVI (Dakota burnett MD [facility]) 401.9 Essential Hypertension Essential Hypertension Problem 08/14/2020 12:00:00 AM EDT GAVI (Dakota Perla MD [facility]) 215639089 History of Nicotine Dependence History of Nicotine Dep endence Problem 08/14/2020 12:00:00 AM EDT GAVI (Dakota Perla MD [facility]) 250.00 Diabetes Mellitus Type 2 Without Complic ation Diabetes Mellitus Type 2 Without Complication Problem 08/14/2020 12:00:00 AM EDT GAVI (Santos Perla MD [facility]) 366.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 Cataract Janice le Cortical Bilateral Problem 08/14/2020 12:00:00 AM EDT GAVI (Dakota burnett MD [facility]) Z79.84 Taking Medication For Diabetes Long-term Use of Oral Hypoglycemics Taking Medication For Diabetes Long-term Use of Oral Hypoglycemics Problem 08/14/2020 12:00:00 AM EDT GAVI (Dakota Perla MD [facility]) 094609239 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 Problem 08/14/2020 12:00:00 AM EDT GAVI (Monica Perla MD [facility]) N39.3 22236296 Stress incontinence Problem 07/30/2020 12:00 :00 AM EDT [facility]) G47.62 [id number] Nocturnal leg cramps Problem 04/17/2020 12:0 0:00 AM EST eCW1 ([facility]) Surgeries/Procedures Procedure Description Date Indications Data Source(s) ECG ROUTINE ECG W/LEAST 12 LDS W/I&R 12/30/2020 12:00: 00 AM EDT eCW1 [facility]) Intermediate Eye Exam Established Patient Intermediate Eye Exam Established Patient 09/30/2020 12:00:00 AM EDT GAVI (Twan Perla MD [facility]) Surgical / procedural history Right Hip Replacement 2 012 Surgical / procedural history Right Hip Replacement 201108/14/2020 12:00:00 AM EDT GAVI (Dakota Perla MD [facility]) Medical Eye Exam Medical Eye Exam 08/14/2020 12:00:00 AM EDT GAVI (Dakota Perla MD [facility]) Medical Eye Exam Medical Eye Exam 08/14/2020 12:00:00 AM EDT GAVI (Dakota Perla MD [facility]) RADEX SPINE LUMBOSACRAL MINIMUM 4 VIEWS 01/30/2020 12: 00:00 AM EDT [facility] ([facility]) Results ID Date Data Source [id number] 01/04/2021 11:25:00 AM EDT [facility] Name Value Range Interpretation Code Description Data Di rce(s) Supporting Document(s) SARS-CoV-2 (COVID-19) RNA [Presence] in Respiratory specimen by JAGDEEP with probe detection Not Detected [facility] This lab was ordered by [facility] and reported by [employer] ID Date Data Source Basic Metabolic Profile (BMP) 12/30/2020 12:00:00 AM EDT eCW 1 ([facility]) Name Value Range Interpretation Code Description Data Di rce(s) Supporting Document(s) 14 7-18 BLOOD UREA NITROGEN eCW1 ([facility]) > 60.0 >39 GLOMERULAR FILTRATION RATE eCW 1 ([facility]) 0.87 0.55-1.30 CREATININE FOR GFR eCW1 ([facility]) 85 70-100 GLUCOSE, FASTING eCW1 ([facility]) 4.4 3.5-5.1 POTASSIUM SERUM eCW1 ([facility]) 31 21-32 CARBON DIOXIDE LEVEL eCW1 ([facility]) 107 98-107 CHLORIDE LEVEL eCW1 ([facility]) 143 136-145 SODIUM LEVEL eCW1 ([facility]) 9.1 8.8-10.2 CALCIUM LEVEL eCW1 ([facility]) ID Date Data Source [id number] 12/30/2020 12:00:00 AM EDT eCW1 ([facility]) Name Value Range Interpretation Code Description Data Di rce(s) Supporting Document(s) Hemoglobin A1c/Hemoglobin.total in Blood 6.0 HEMOGLOBIN A1c eCW1 ([facility]) ID Date Data Source CBC - Complete Blood Count 12/30/2020 12:00:00 AM EDT eCW1 ( [facility]) Name Value Range Interpretation Code Description Data Di rce(s) Supporting Document(s) 8.9 4.0-10.0 WHITE BLOOD COUNT eCW1 ([facility]) 14.9 12.0-15.5 HEMOGLOBIN eCW1 ([facility]) 4.77 4.00-5.40 RED BLOOD COUNT eCW1 ([facility]) 97.7 80.0-96.0 MEAN CORPUSCULAR VOLUME e CW1 ([facility]) 31.2 27.0-33.0 MEAN CORPUSCULAR HEMOGLOB IN eCW1 ([facility]) 32.0 32.0-36.5 MEAN CORPUSCULAR HGB CONC eCW1 ([facility]) 46.6 36.0-47.0 HEMATOCRIT eCW1 ([facility]) 13.8 11.5-14.5 RED CELL DISTRIBUTION WID TH eCW1 ([facility]) 213 150-450 PLATELET COUNT, AUTOMATED eCW1 ([facility]) ID Date Data Source [id number] 02/13/2020 01:29:00 PM EDT [facility] ([facility] ) Name Value Range Interpretation Code Description Data Di rce(s) Supporting Document(s) Laboratory test finding (navigational concept) Laboratory test result [facility] ([facility]) ID Date Data Source LIPID PANEL (CARDIAC RISK) 02/12/2020 08:07:41 AM EDT eCW1 ( [facility]) Name Value Range Interpretation Code Description Data Di rce(s) Supporting Document(s) Cholesterol in HDL [Moles/volume] in Serum or Plasma 73 HDL CHOLESTEROL eCW1 ([facility]) Cholesterol [Moles/volume] in Serum or Plasma 133 CHOLESTEROL LEVEL eCW1 ([facility]) Triglyceride [Mass/volume] in Serum or Plasma by calculation 85 TRIGLYCERIDES LEVEL W1 ([facility]) Cholesterol in LDL [Mass/volume] in Serum or Plasma by calculation 43 LDL CHOLESTEROL eCW1 ([facility]) 1.821 CHOLESTEROL RISK RATIO eCW1 ([facility]) 60 NON-HDL-C eCW1 ([facility]) ID Date Data Source [id number] 01/09/2020 12:00:00 AM EDT [facility] David Woodard MD Patient Name: LUIS GREGORY [id number] [facility] Date of : 1945[place] [address] Date of Exam: 01/09/2020#: Fax: [phone] EXAM: ARTHROCENTESIS LTHIP-ASPIR / INJ STEROID/PAIN MEDSLEFT HIP INJECTION:The procedure was performed by EM Gil under the generalsupervision of Dr. Ferguson.The benefits and risks including, but not limited to pain, infection,bleeding, and anaphylaxis were explained to the patient and informedconsent was obtained.The left femoral neck was localized using fluoroscopic guidance. The skinwas prepped and draped in a sterile fashion. 1% Lidocaine was used as alocal anesthetic. Using fluoroscopic guidance, a #22 gauge spinal needlewas inserted and advanced to the femoral neck. 0.5 cc of Omnipaque 300 wasinjected to verify placement. 6 cc of a solution containing 5 cc of 1%Lidocaine and 1 cc of Kenalog 40 mg was injected into the joint space. Theneedle was then removed.The patient tolerated the procedure well and there w ere no immediatecomplications.Fluoroscopy time was 3 seconds at 3 pulses/second. This is equal to 0.75seconds continuous fluoroscopy time which is a 75% reduction in radiation.MADELYN Hartmann/Yaya powell for referring LUIS GREGORY to our office. Electronically Signed - AURA FERGUSON MD 01/15/20 8:55 Name Value Range Interpretation Code Description Data Di rce(s) Supporting Document(s) ID Date Data Source [id number] 01/09/2020 12:00:00 AM EDT [facility] David Woodard MD Patient Name: LUIS GREGORY [id number] [facility] Date of : [address] [address] Date of Exam: 01/09/2020#: Fax: [phone] EXAM: ARTHROCENTESIS LTHIP-ASPIR / INJ STEROID/PAIN MEDSLEFT HIP INJECTION:The procedure was performed by EM Gil under the generalsupervision of Dr. Ferguson.The benefits and risks including, but not limited to pain, infection,bleeding, and anaphylaxis were explained to the patient and informedconsent was obtained.The left femoral neck was localized using fluoroscopic guidance. The skinwas prepped and draped in a sterile fashion. 1% Lidocaine was used as alocal anesthetic. Using fluoroscopic guidance, a #22 gauge spinal needlewas inserted and advanced to the femoral neck. 0.5 cc of Omnipaque 300 wasinjected to verify placement. 6 cc of a solution containing 5 cc of 1%Lidocaine and 1 cc of Kenalog 40 mg was injected into the joint space. Theneedle was then removed.The patient tolerated the procedure well and there w ere no immediatecomplications.Fluoroscopy time was 3 seconds at 3 pulses/second. This is equal to 0.75seconds continuous fluoroscopy time which is a 75% reduction in radiation.MADELYN Hartmann/Yaya you for referring LUIS GREGORY to our office. Electronically Signed - AURA FERGUSON MD 01/15/20 8:55 Name Value Range Interpretation Code Description Data Di rce(s) Supporting Document(s) Procedure Social History Code Duration Value Status Description Data Source(s ) Smoking 02/28/2021 12:00:00 AM EST Former Smoker completed Former Smoker [facility]) Smoking 02/28/2021 12:00:00 AM EST Former Smoker completed Former Smoker eCW1 ([facility]) Smoking 12/30/2020 12:00:00 AM EDT Former Smoker completed Former Smoker eCW1 ([facility]) Smoking 12/30/2020 12:00:00 AM EDT Former Smoker completed Former Smoker eCW1 ([facility]) Smoking 12/30/2020 12:00:00 AM EDT Former Smoker completed Former Smoker eCW1 ([facility]) Smoking 12/03/2020 11:06:48 PM EDT Ex-smoker (finding) complet ed Ex-smoker (finding) [facility] (Dakota Perla MD [facility]) Smoking 08/14/2020 10:46:37 AM EDT Ex-smoker (finding) complet ed Ex-smoker (finding) [facility]I (Dakota Perla MD [facility]) Smoking 07/30/2020 12:00:00 AM EDT Former Smoker completed Former Smoker eCW1 ([facility]) Smoking 07/30/2020 12:00:00 AM EDT Former Smoker completed Former Smoker eCW1 ([facility]) Smoking 07/30/2020 12:00:00 AM EDT Former Smoker completed Former Smoker eCW1 ([facility]) Smoking 07/30/2020 12:00:00 AM EDT Former Smoker completed Former Smoker eCW1 ([facility]) Smoking 07/30/2020 12:00:00 AM EDT Former Smoker completed Former Smoker eCW1 ([facility]) Smoking 04/17/2020 12:00:00 AM EST Former Smoker completed Former Smoker eCW1 ([facility]) Smoking 02/08/2020 12:00:00 AM EDT Former Smoker completed Former Smoker eCW1 ([facility]) Smoking 02/08/2020 12:00:00 AM EDT Former Smoker completed Former Smoker eCW1 ([facility]) Smoking 02/08/2020 12:00:00 AM EDT Former Smoker completed Former Smoker eCW1 ([facility]) Vital Signs ID Date Data Source UNK Name Value Range Interpretation Code Description Data Source(s) Body weight 180 [lb_av] 180 [lb_av] eCW1 ([facility]) Body height 63 [in_i] 63 [in_i] eCW1 ([facility]) Body mass index (BMI) [Ratio] 31.88 kg/m2 31.88 kg/m2 eCW1 [facility]) Heart rate 96 /min 96 /min eCW1 ([facility]) Respiratory rate 18 /min 18 /min eCW1 ([facility]) Body temperature 96 [degF] 96 [degF] eCW1 ([facility]) Systolic blood pressure 166 mm[Hg] 166 mm[Hg] e CW1 ([facility]) Diastolic blood pressure 100 mm[Hg] 100 mm[Hg] eCW1 [facility]) Body weight 181 [lb_av] 181 [lb_av] eCW1 ([facility]) Body height 63 [in_i] 63 [in_i] eCW1 ([facility]) Body mass index (BMI) [Ratio] 32.06 kg/m2 32.06 kg/m2 eCW1 ([facility]) Heart rate 87 /min 87 /min eCW1 ([facility]) Respiratory rate 18 /min 18 /min eCW1 ([facility]) Body temperature 96.4 [degF] 96.4 [degF] eCW1 ( [facility]) Systolic blood pressure 140 mm[Hg] 140 mm[Hg] e CW1 ([facility]) Diastolic blood pressure 78 mm[Hg] 78 mm[Hg] eCW1 [facility]) Body weight 180.6 [lb_av] 180.6 [lb_av] eCW[facility] Body height 63 [in_i] 63 [in_i] eCW1 ([facility]) Body mass index (BMI) [Ratio] 31.99 kg/m2 31.99 kg/m2 eCW1 ([facility]) Heart rate 83 /min 83 /min eCW1 ([facility]) Respiratory rate 18 /min 18 /min eCW1 ([facility]) Body temperature 97.7 [degF] 97.7 [degF] eCW1 ( [facility]) Systolic blood pressure 138 mm[Hg] 138 mm[Hg] e CW1 ([facility]) Diastolic blood pressure 76 mm[Hg] 76 mm[Hg] eCW1 ([facility]) Respiratory rate 18 /min 18 /min eCW1 ([facility]) Body weight 176 [lb_av] 176 [lb_av] eCW1 ([facility]) Body height 63 [in_i] 63 [in_i] eCW1 ([facility]) Body mass index (BMI) [Ratio] 31.17 kg/m2 31.17 kg/m2 eCW1 ([facility]) Heart rate 88 /min 88 /min eCW1 ([facility]) Body temperature 96.9 [degF] 96.9 [degF] eCW1 ( [facility]) Systolic blood pressure 138 mm[Hg] 138 mm[Hg] e CW1 ([facility]) Diastolic blood pressure 80 mm[Hg] 80 mm[Hg] eCW1 ([facility]) Body temperature 96.8 [degF] 96.8 [degF] [facility] ([facility] ) Body height 61.5 [in_i] 61.5 [in_i] [facility] ([facility] 5'1.50" Body weight 173.00 [lb_av] 173.00 [lb_av] MEDEN T ([facility] ) Body mass index (BMI) [Ratio] 32.2 kg/m2 32.2 k g/m2 MEDENT ([facility]) Body weight 176 [lb_av] 176 [lb_av] eCW1 ([facility]) Body height 63 [in_i] 63 [in_i] eCW1 ([facility]) Body mass index (BMI) [Ratio] 31.17 kg/m2 31.17 kg/m2 eCW1 [facility]) Heart rate 82 /min 82 /min eCW1 ([facility]) Respiratory rate 18 /min 18 /min eCW1 ([facility]) Systolic blood pressure 130 mm[Hg] 130 mm[Hg] e CW1 ([facility]) Diastolic blood pressure 80 mm[Hg] 80 mm[Hg] eCW1 ([facility]) Body temperature 97 [degF] 97 [degF] eCW1 ([facility]) Body height 64 [in_i] 64 [in_i] [facility] ([facility] ) 5'4" Body weight 182.00 [lb_av] 182.00 [lb_av] MEDEN T ([facility]) Body mass index (BMI) [Ratio] 31.2 kg/m2 31.2 k g/m2 [facility] ([facility] ) Body temperature 96.0 [degF] 96.0 [degF] [facility] ([facility]) Patient Treatment Plan of Care Planned Activity Planned Date Details Description Data Source (s) Hydrochlorothiazide 25 MG / Lisinopril 20 MG Oral Tabl et 02/28/2021 12:00:00 AM EST eCW1 ([facility]) Hydrochlorothiazide 25 MG / Lisinopril 20 MG Oral Tabl et 02/28/2021 12:00:00 AM EST eCW1 ([facility]) Fluticasone Propionate 50 MCG/ACT 07/30/2020 12:00:00 AM EDT [facility] Fluticasone Propionate 50 MCG/ACT 07/30/2020 12:00:00 AM EDT eCW1 ([facility]) Fluticasone Propionate 50 MCG/ACT 07/30/2020 12:00:00 AM EDT eCW1 ([facility]) Fluticasone Propionate 50 MCG/ACT 07/30/2020 12:00:00 AM EDT eCW1 ([facility]) Fluticasone Propionate 50 MCG/ACT 07/30/2020 12:00:00 AM EDT eCW1 ([facility]) Fluticasone Propionate 50 MCG/ACT 07/30/2020 12:00:00 AM EDT eCW1 ([facility]) Fluticasone Propionate 50 MCG/ACT 07/30/2020 12:00:00 AM EDT eCW1 ([facility]) Fluticasone Propionate 50 MCG/ACT 07/30/2020 12:00:00 AM EDT eCW1 ([facility]) Lisinopril 20 MG Oral Tablet 02/08/2020 12:00:00 AM EDT eCW1 ([facility]) Lisinopril 20 MG Oral Tablet 02/08/2020 12:00:00 AM EDT eCW1 ([facility]) Lisinopril 20 MG Oral Tablet 02/08/2020 12:00:00 AM EDT eCW1 ([facility]) Lisinopril 20 MG Oral Tablet 02/08/2020 12:00:00 AM EDT eCW1 ([facility])
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
[2021-03-06] MEDS ORDERED: HYDR12.55 PO (11:27)
[2021-03-06] MEDS: TETRACAINE 0.5% OPHTH SOLN 4ML OS SCH ×2 (11:28→11:32)
[2021-03-06] MEDS: FLURBIPROFEN 0.03% OPHTH SOLN 2.5 ML OS SCH ×3 (11:33→11:52)
[2021-03-06] MEDS: CYCLOPENTOLATE 1% OPHTH SOLN 2 ML BTL OS SCH ×3 (11:33→11:52)
[2021-03-06] MEDS: PHENYLEPHRINE 2.5% OPHTH SOL 2ML OS SCH ×3 (11:33→11:52)
[2021-03-06 14:10] VITALS: BP 187/82
--- NOTE | 2021-03-06 16:01 | ROOPDOC ---
[facility] Report Of Operation Report of Operation DATE OF PROCEDURE: 03/06/21 PREPROCEDURE DIAGNOSES: Cataract left eye. POSTPROCEDURE DIAGNOSES: Same. PROCEDURE PERFORMED: Cataract extraction with intraocular lens implantation left eye. SURGEON: Sunil Garcia MD INTERVENTIONAL RADIOLOGIST: None ANESTHESIA: Local ESTIMATED BLOOD LOSS: None. COMPLICATIONS: None. SPECIMENS REMOVED: None DESCRIPTION OF PROCEDURE: The patient was brought to the operating room and prepped and draped in the usual sterile fashion and an eyelid speculum was inserted in the left eye. A paracentesis was made and the anterior chamber was inflated with non-preserved lidocaine. This was followed by injection of Viscoat. A groove was made in the superotemporal clear cornea which was tunneled forward with the crescent blade and the anterior chamber was entered with a 2.75 keratome. The cystotome was used to make an incision in the center of the capsule and a continuous curvilinear capsulorhexis was created. The lens was hydrodissected until it was found to rotate freely within the capsular bag. Phacoemulsification was then used to remove the lens in its entirety. Irrigation and aspiration were used to remove residual cortical material. The anterior chamber and capsular bag were reinflated with Provisc and a 19.5 diopter [id number] lens was injected into the capsular bag using the [place] injector. The lens was dialed into place using the [place] hook. Irrigation and aspiration were used to remove residual viscoelastic. The wound was stromally hydrated until was found to be watertight and the eye was in an appropriate pressure. The eyelid speculum was removed from the eye and Maxitrol drops were placed over the left eye. The patient was transferred to the recovery room in stable condition and will follow up tomorrow. The total CDE was 23.91. SUNIL GARCIA MD Mar 06, 2021 16:01
== END 2021-03-06 14:19 | disposition home or self-care (01) ==
LOC: M SDC 11:00
PROVIDERS: ATTEND Ophthalmology
DX: H25.12 Age-related nuclear cataract, left eye (principal)
CPT/HCPCS: 66984; J2250; J3010; V2632

== ENCOUNTER → 2021-03-18 | Outpatient (CLI) | payer MEDICARE ==
[~2021-03-18] MED LIST changes: -DUOVISC (0.50ML VISCOAT/0.85ML PROVISC) OPHTH KIT As Ordered ONE; +HYDR12.55 PO; -LIDOCAINE 1% SDV 5ML VIAL As Ordered ONE; -LISI-898 PO; +LISI5TAB11 PO; -LR 1,000 ML IV SCH; -MAXITROL OPHTH SUSP 5 ML As Ordered ONE; -MIDAZOLAM INJ 2MG/2ML VIAL (J2250 PER 1MG) As Ordered ONE; -fentaNYL 100 MCG/2 ML INJECTION (J3010) As Ordered ONE
[2021-03-18 12:25] LABS: CALCIUM LEVEL 9.2 MG/DL (8.8-10.2); CREATININE FOR GFR 0.96 MG/DL (0.55-1.30); POTASSIUM SERUM 3.9 MEQ/L (3.5-5.1)
== END ==
LOC: M PLALAB 10:17
PROVIDERS: ATTEND Family Medicine
DX: I10 Essential (primary) hypertension (principal)

== ENCOUNTER → 2021-09-18 | Outpatient (CLI) | payer MEDICARE | LOC: M SOG 10:35 | PROVIDERS: ATTEND Orthopaedic Surgery Adult Reconstructive Orthopaedic Surgery | DX: M16.12 Unilateral primary osteoarthritis, left hip (principal); M25.552 Pain in left hip ==

== ENCOUNTER → 2021-10-14 | Outpatient (CLI) | payer MEDICARE ==
[~2021-10-14] MED LIST changes: +LISI20TA37 PO
== END ==
LOC: M RAD 15:59
PROVIDERS: ATTEND Orthopaedic Surgery Adult Reconstructive Orthopaedic Surgery
DX: M16.32 Unilateral osteoarthritis resulting from hip dysplasia, left hip (principal)

== ENCOUNTER → 2021-10-16 | Outpatient (CLI) | payer MEDICARE ==
[2021-10-16 16:59] LABS: BASO # 0.1 10^3/uL (0.0-0.2); BASO % 1.1 % (0.0-1.0); EOS # 0.4 10^3/uL (0.0-0.5); EOS % 4.7 % (0.0-3.0); HEMATOCRIT 44.1 % (36.0-47.0); HEMOGLOBIN 14.4 g/dl (12.0-15.5); LYMPH # 1.9 10^3/uL (1.5-5.0); LYMPH % 19.7 % (24.0-44.0); MEAN CORPUSCULAR HEMOGLOBIN 31.7 pg (27.0-33.0); MEAN CORPUSCULAR HGB CONC 32.7 g/dl (32.0-36.5); MEAN CORPUSCULAR VOLUME 97.1 fl (80.0-96.0); MONO # 1.1 10^3/uL (0.0-0.8); MONO % 11.2 % (2.0-8.0); NEUTROPHILS # 5.9 10^3/uL (1.5-8.5); NEUTROPHILS % 63.1 % (36.0-66.0); PLATELET COUNT, AUTOMATED 219 10^3/uL (150-450); RED BLOOD COUNT 4.54 10^6/uL (4.00-5.40); WHITE BLOOD COUNT 9.4 10^3/uL (4.0-10.0)
[2021-10-16 17:42] LABS: ALBUMIN 4.4 GM/DL (3.2-5.2); ALT/SGPT 28 U/L (12-78); BLOOD UREA NITROGEN 15 MG/DL (7-18); CALCIUM LEVEL 10.1 MG/DL (8.8-10.2); CARBON DIOXIDE LEVEL 33 MEQ/L (21-32); CHLORIDE LEVEL 106 MEQ/L (98-107); CREATININE FOR GFR 0.94 MG/DL (0.55-1.30); GLOMERULAR FILTRATION RATE > 60.0 (>39); GLUCOSE, FASTING 85 MG/DL (70-100); POTASSIUM SERUM 4.1 MEQ/L (3.5-5.1); SODIUM LEVEL 141 MEQ/L (136-145)
== END ==
LOC: M PLALAB 14:47
PROVIDERS: ATTEND Physician Assistant
DX: Z01.818 Encounter for other preprocedural examination (principal); E11.9 Type 2 diabetes mellitus without complications

== ENCOUNTER → 2021-10-17 | Outpatient (REF) | payer MEDICARE ==
[2021-10-17 13:36] LABS: APPEARANCE, URINE HAZY (CLEAR); BACTERIA, URINE AUTO 3+ (NEGATIVE); BILIRUBIN, URINE AUTO NEGATIVE (NEGATIVE); BLOOD, URINE BLOOD 1+ (NEGATIVE); COLOR, URINE YELLOW (YELLOW); GLUCOSE, URINE (UA) AUTO NEGATIVE (NEGATIVE); KETONE, URINE AUTO NEGATIVE (NEGATIVE); LEUKOCYTE ESTERASE, URINE AUTO 3+ (NEGATIVE); NITRITE, URINE AUTO POSITIVE (NEGATIVE); PROTEIN, URINE AUTO NEGATIVE (NEGATIVE); RBC, URINE AUTO 1 /HPF (0-3); SPECIFIC GRAVITY URINE AUTO 1.008 (1.002-1.035); SQUAMOUS EPITHELIAL CELL UR AU 1 /HPF (0-6); UROBILINOGEN, URINE AUTO 0.2 mg/dL (0.0-2.0); WBC, URINE AUTO 42 /HPF (0-3)
== END ==
LOC: M SFHCPLAZ 13:04
PROVIDERS: ATTEND Physician Assistant
DX: Z01.818 Encounter for other preprocedural examination (principal); Z79.899 Other long term (current) drug therapy

== ENCOUNTER → 2021-10-27 | Outpatient (CLI) | payer MEDICARE ==
[2021-10-27 17:20] LABS: APPEARANCE, URINE HAZY (CLEAR); BACTERIA, URINE AUTO NEGATIVE (NEGATIVE); BILIRUBIN, URINE AUTO NEGATIVE (NEGATIVE); BLOOD, URINE BLOOD NEGATIVE (NEGATIVE); COLOR, URINE YELLOW (YELLOW); GLUCOSE, URINE (UA) AUTO NEGATIVE (NEGATIVE); KETONE, URINE AUTO NEGATIVE (NEGATIVE); LEUKOCYTE ESTERASE, URINE AUTO 1+ (NEGATIVE); NITRITE, URINE AUTO NEGATIVE (NEGATIVE); PROTEIN, URINE AUTO NEGATIVE (NEGATIVE); RBC, URINE AUTO 0 /HPF (0-3); SPECIFIC GRAVITY URINE AUTO 1.015 (1.002-1.035); SQUAMOUS EPITHELIAL CELL UR AU 3 /HPF (0-6); UROBILINOGEN, URINE AUTO 0.2 mg/dL (0.0-2.0); WBC, URINE AUTO 0 /HPF (0-3)
== END ==
LOC: M PLALAB 14:31
PROVIDERS: ATTEND Physician Assistant
DX: N39.0 Urinary tract infection, site not specified (principal)

== ENCOUNTER → 2021-11-13 | Outpatient (CLI) | payer MEDICARE ==
[~2021-11-13] MED LIST changes: +VITMTA PO
== END ==
LOC: M LABSMTC 10:34
PROVIDERS: ATTEND Anesthesiology
DX: Z01.812 Encounter for preprocedural laboratory examination (principal); Z11.52 Encounter for screening for COVID-19

== ENCOUNTER 2021-11-18 06:10 | Observation (INO) | payer MEDICARE ==
[~2021-11-18] VITALS: Ht 160 cm; Wt 78.8 kg
[2021-11-18] VITALS (7 sets, daily range): BP systolic 114–134; BP diastolic 59–73
[~2021-11-18 06:10] MED LIST changes: +ACETAMINOPHEN 500 MG TAB PO ONE; +NAPROXEN 250 MG TAB PO ONE; +NS 1,000 ML IV ONE; +PREGABALIN 25 MG CAP (LYRICA) PO ONE; +ROPIVA 125MG/EPINEPH 0.25MG/CLONID 40MCG/KETOR 15MG IN NS 50ML SYRINGE PA ONE; +ceFAZolin SOD 2 GM in IV 1 EA IV ONE; +dexameTHASONE 4 MG/ML 1ML VIAL (J1100 PER 1MG) IV ONE
[2021-11-18] MEDS ORDERED: LR 1,000 ML IV SCH ×3 (06:15→11:20)
[2021-11-18] MEDS ORDERED: TRANEXAMIC ACID 100 MG/ML 10ML VIAL As Ordered ONE ×2 (07:17→07:18)
[2021-11-18] MEDS ORDERED: METOCLOPRAMIDE INJ 10MG/2ML VIAL (J2765 PER 1) As Ordered ONE (07:18)
[2021-11-18] MEDS ORDERED: dexameTHASONE 4 MG/ML 1ML VIAL (J1100 PER 1MG) As Ordered ONE ×2 (07:18→09:18)
[2021-11-18] MEDS ORDERED: ONDANSETRON 4MG 2ML VIAL As Ordered ONE (07:18)
[2021-11-18] MEDS ORDERED: ACETAMINOPHEN 1000MG 100ML IV BTL (OFIRMEV) (J0131 PER 10MG) As Ordered ONE (07:18)
[2021-11-18] MEDS ORDERED: LIDOCAINE 2% 100MG/5ML SDV (FOR ANES.) As Ordered ONE (07:18)
[2021-11-18] MEDS ORDERED: fentaNYL 250 MCG/5 ML INJECTION As Ordered ONE (07:18)
[2021-11-18] MEDS ORDERED: ROCURONIUM BROMIDE 50 MG/5 ML VIAL As Ordered ONE (07:18)
[2021-11-18] MEDS ORDERED: propofoL 200 MG/20 ML VIAL As Ordered ONE (07:18)
[2021-11-18] MEDS ORDERED: MIDAZOLAM INJ 2MG/2ML VIAL (J2250 PER 1MG) As Ordered ONE (07:39)
[2021-11-18] MEDS ORDERED: PHENYLEPHRINE 10MG/ML 1ML VIAL (J2370 PER 1) As Ordered ONE (07:39)
[2021-11-18] MEDS ORDERED: BUPIVACAINE/DEXTROSE 0.75% 2ML AMP As Ordered ONE ×2 (07:39→08:03)
[2021-11-18] MEDS ORDERED: ePHEDrine SULFATE 25 MG/5 ML(5MG/ML) SYRINGE As Ordered ONE (09:18)
[2021-11-18] MEDS ORDERED: fentaNYL 100 MCG/2 ML INJECTION IV PRN (10:55)
[2021-11-18] MEDS ORDERED: ONDANSETRON 4MG 2ML VIAL IV PRN ×3 (10:55→11:20)
[2021-11-18] MEDS ORDERED: oxyCODONE 5MG TAB PO PRN ×3 (10:55→11:10)
[2021-11-18] MEDS ORDERED: MORPHINE 2 MG/ML 1ML VIAL IV PRN (10:55)
[2021-11-18] MEDS ORDERED: traMADol 50 MG TAB PO PRN (11:10)
[2021-11-18] MEDS ORDERED: SENNA 8.6 MG TAB (SENOKOT) PO PRN (11:10)
[2021-11-18] MEDS: DOCUSATE SODIUM 100MG CAPSULE PO SCH ×2 (13:10→20:36)
[2021-11-18] MEDS: ACETAMINOPHEN TAB 650MG DOSE (2X325MG) PO SCH ×2 (13:20→17:22)
[2021-11-18] MEDS ORDERED: DEXTROSE 50% 50 ML SYRINGE IV PRN (14:30)
[2021-11-18] MEDS ORDERED: GLUCOSE 4GM CHEW TABLET PO PRN (14:30)
[2021-11-18] MEDS ORDERED: GLUCAGON INJ 1MG VIAL SC PRN (14:30)
[2021-11-18 14:53] LABS: BASO % 0.2 % (0.0-1.0); HEMATOCRIT 39.1 % (36.0-47.0); HEMOGLOBIN 12.7 g/dl (12.0-15.5); LYMPH # 0.9 10^3/uL (1.5-5.0); LYMPH % 5.2 % (24.0-44.0); MEAN CORPUSCULAR HEMOGLOBIN 31.1 pg (27.0-33.0); MEAN CORPUSCULAR HGB CONC 32.5 g/dl (32.0-36.5); MEAN CORPUSCULAR VOLUME 95.6 fl (80.0-96.0); MONO # 0.2 10^3/uL (0.0-0.8); MONO % 1.3 % (2.0-8.0); NEUTROPHILS # 15.3 10^3/uL (1.5-8.5); NEUTROPHILS % 92.8 % (36.0-66.0); PLATELET COUNT, AUTOMATED 192 10^3/uL (150-450); RED BLOOD COUNT 4.09 10^6/uL (4.00-5.40); WHITE BLOOD COUNT 16.5 10^3/uL (4.0-10.0)
[2021-11-18 15:16] LABS: CALCIUM LEVEL 9.2 MG/DL (8.8-10.2); CREATININE FOR GFR 1.23 MG/DL (0.55-1.30); MAGNESIUM LEVEL 1.8 MG/DL (1.8-2.4); POTASSIUM SERUM 3.6 MEQ/L (3.5-5.1)
[2021-11-18] MEDS: ASCORBIC ACID 500 MG TAB PO SCH (17:22)
[2021-11-18] MEDS: FERROUS SULFATE 325MG TAB PO SCH (17:22)
[2021-11-18] MEDS: INSULIN LISPRO (NovoLOG) PER UNIT SC SCH (17:23)
[2021-11-18] MEDS: ceFAZolin SOD 2 GM in IV 1 EA IV SCH (17:23)
[2021-11-18] MEDS: ASPIRIN 81MG ENTERIC TABLET PO SCH (20:36)
[2021-11-18] MEDS: NAPROXEN 250 MG TAB PO SCH (20:36)
[2021-11-18] MEDS: METOPROLOL TART 50 MG TAB PO SCH (20:38)
[2021-11-18] MEDS ORDERED: INSULIN LISPRO (NovoLOG) PER UNIT SC SCH (21:00)
[2021-11-18] MEDS ORDERED: SIMVASTATIN 40 MG TAB PO SCH (21:00)
[2021-11-19] MEDS: ACETAMINOPHEN TAB 650MG DOSE (2X325MG) PO SCH ×3 (00:20→11:59)
[2021-11-19] MEDS: ceFAZolin SOD 2 GM in IV 1 EA IV SCH ×2 (00:20→09:28)
[2021-11-19 02:00] VITALS: BP 108/46
[2021-11-19 06:00] VITALS: BP 129/55
[2021-11-19] MEDS: INSULIN LISPRO (NovoLOG) PER UNIT SC SCH ×2 (09:27→11:59)
[2021-11-19] MEDS: ASPIRIN 81MG ENTERIC TABLET PO SCH (09:28)
[2021-11-19] MEDS: FERROUS SULFATE 325MG TAB PO SCH (09:28)
[2021-11-19] MEDS: DOCUSATE SODIUM 100MG CAPSULE PO SCH (09:28)
[2021-11-19] MEDS: NAPROXEN 250 MG TAB PO SCH (09:29)
[2021-11-19] MEDS: ASCORBIC ACID 500 MG TAB PO SCH (09:30)
[2021-11-19 09:35] LABS: BASO % 0.1 % (0.0-1.0); HEMATOCRIT 37.1 % (36.0-47.0); HEMOGLOBIN 11.9 g/dl (12.0-15.5); LYMPH # 1.3 10^3/uL (1.5-5.0); LYMPH % 6.3 % (24.0-44.0); MEAN CORPUSCULAR HEMOGLOBIN 31.5 pg (27.0-33.0); MEAN CORPUSCULAR HGB CONC 32.1 g/dl (32.0-36.5); MEAN CORPUSCULAR VOLUME 98.1 fl (80.0-96.0); MONO # 0.9 10^3/uL (0.0-0.8); MONO % 4.7 % (2.0-8.0); NEUTROPHILS # 17.6 10^3/uL (1.5-8.5); NEUTROPHILS % 88.4 % (36.0-66.0); PLATELET COUNT, AUTOMATED 187 10^3/uL (150-450); RED BLOOD COUNT 3.78 10^6/uL (4.00-5.40); WHITE BLOOD COUNT 19.9 10^3/uL (4.0-10.0)
[2021-11-19 10:03] LABS: CALCIUM LEVEL 8.9 MG/DL (8.8-10.2); CREATININE FOR GFR 1.35 MG/DL (0.55-1.30); GLOMERULAR FILTRATION RATE 40.4 (>39); MAGNESIUM LEVEL 1.9 MG/DL (1.8-2.4); POTASSIUM SERUM 3.6 MEQ/L (3.5-5.1)
[2021-11-19 10:08] VITALS: BP 117/48
[2021-11-19 10:15] VITALS: BP 107/48
[2021-11-19] MEDS: METOPROLOL TART 50 MG TAB PO SCH (10:15)
[2021-11-19] MEDS ORDERED: COLA100C5 PO (11:51)
[2021-11-19] MEDS ORDERED: ASPI-551 PO (11:51)
[2021-11-19] MEDS ORDERED: OXYC-517 PO (11:51)
[2021-11-19] MEDS ORDERED: TRAM50TA2 PO (11:51)
[2021-11-19] MEDS ORDERED: ACET1TAB55 PO (11:51)
[2021-11-19 14:36] VITALS: BP 150/65
== END 2021-11-19 16:20 | disposition home health service (06) ==
LOC: M SDC 06:10 → M MS5PR 13:10 → M SDC 15:21
PROVIDERS: ADMIT Family Medicine; ATTEND Family Medicine
DX: M16.12 Unilateral primary osteoarthritis, left hip (principal); E11.9 Type 2 diabetes mellitus without complications; I73.01 Raynaud's syndrome with gangrene; I10 Essential (primary) hypertension; E78.5 Hyperlipidemia, unspecified; Z87.891 Personal history of nicotine dependence; Z96.641 Presence of right artificial hip joint; Z79.899 Other long term (current) drug therapy; Z79.82 Long term (current) use of aspirin; Z79.84 Long term (current) use of oral hypoglycemic drugs; Z88.8 Allergy status to other drugs, medicaments and biological substances
CPT/HCPCS: 27130; 36415; 72170; 80048; 83735; 85025; 88304; 88311; 96374; 96376; 97116; 97161; 97165; 97530; 97535; C1776; G0378; J0690; J1100; J1815; J2250; J2370; J2405; J3010; S2900

== ENCOUNTER → 2021-11-21 | Outpatient (REF) | payer MEDICARE ==
[~2021-11-21] MED LIST changes: +ACET1TAB55 PO; -ACETAMINOPHEN 500 MG TAB PO ONE; +ASPI-551 PO; +COLA100C5 PO; -NAPROXEN 250 MG TAB PO ONE; -NS 1,000 ML IV ONE; +OXYC-517 PO; -PREGABALIN 25 MG CAP (LYRICA) PO ONE; -ROPIVA 125MG/EPINEPH 0.25MG/CLONID 40MCG/KETOR 15MG IN NS 50ML SYRINGE PA ONE; +TRAM50TA2 PO; -ceFAZolin SOD 2 GM in IV 1 EA IV ONE; -dexameTHASONE 4 MG/ML 1ML VIAL (J1100 PER 1MG) IV ONE
[2021-11-21 16:19] LABS: HEMATOCRIT 36.7 % (36.0-47.0); HEMOGLOBIN 11.6 g/dl (12.0-15.5); MEAN CORPUSCULAR HEMOGLOBIN 30.9 pg (27.0-33.0); MEAN CORPUSCULAR HGB CONC 31.6 g/dl (32.0-36.5); MEAN CORPUSCULAR VOLUME 97.6 fl (80.0-96.0); PLATELET COUNT, AUTOMATED 185 10^3/uL (150-450); RED BLOOD COUNT 3.76 10^6/uL (4.00-5.40); WHITE BLOOD COUNT 12.7 10^3/uL (4.0-10.0)
== END ==
LOC: M SHH 15:08
PROVIDERS: ATTEND Orthopaedic Surgery Adult Reconstructive Orthopaedic Surgery
DX: Z48.89 Encounter for other specified surgical aftercare (principal); Z79.82 Long term (current) use of aspirin; Z79.899 Other long term (current) drug therapy

== ENCOUNTER → 2021-12-02 | Outpatient (CLI) | payer MEDICARE | LOC: M SOG 08:07 | PROVIDERS: ATTEND Orthopaedic Surgery Adult Reconstructive Orthopaedic Surgery | DX: M16.12 Unilateral primary osteoarthritis, left hip (principal) ==

== ENCOUNTER 2022-09-11 13:13 | Observation (INO) | payer MEDICARE ==
[~2022-09-11] VITALS: Ht 162.6 cm; Wt 76.0 kg
[2022-09-11] MEDS ORDERED: NS 1,000 ML IV ONE (16:05)
[2022-09-11 16:45] LABS: BASO % 0.4 % (0.0-1.0); EOS # 0.1 10^3/uL (0.0-0.5); EOS % 1.7 % (0.0-3.0); HEMATOCRIT 45.3 % (36.0-47.0); HEMOGLOBIN 14.9 g/dl (12.0-15.5); LYMPH # 1.4 10^3/uL (1.5-5.0); LYMPH % 17.2 % (24.0-44.0); MEAN CORPUSCULAR HEMOGLOBIN 30.5 pg (27.0-33.0); MEAN CORPUSCULAR HGB CONC 32.9 g/dl (32.0-36.5); MEAN CORPUSCULAR VOLUME 92.8 fl (80.0-96.0); MONO # 0.9 10^3/uL (0.0-0.8); MONO % 11.6 % (2.0-8.0); NEUTROPHILS # 5.5 10^3/uL (1.5-8.5); NEUTROPHILS % 68.2 % (36.0-66.0); PLATELET COUNT, AUTOMATED 278 10^3/uL (150-450); RED BLOOD COUNT 4.88 10^6/uL (4.00-5.40)
[2022-09-11 17:06] LABS: ALBUMIN 3.8 G/DL (3.2-5.2); BILIRUBIN,DIRECT 0.4 MG/DL (<0.4); BILIRUBIN,TOTAL 1.3 MG/DL (0.3-1.2); CK-MB VALUE MASS 5.9 NG/ML (<3.6); TOTAL PROTEIN 7.3 G/DL (5.7-8.2)
[2022-09-11 17:08] LABS: MB/CK RELATIVE INDEX 2.2 (< OR =4)
[2022-09-11] MEDS ORDERED: NS 1,000 ML IV SCH (18:25)
[2022-09-11] MEDS ORDERED: ACETAMINOPHEN TAB 650MG DOSE (2X325MG) PO PRN (19:10)
[2022-09-11] MEDS ORDERED: LR 1,000 ML IV SCH (19:10)
[2022-09-11] MEDS ORDERED: DEXTROSE 50% 50ML SYRINGE IV PRN (19:55)
[2022-09-11] MEDS ORDERED: GLUCAGON INJ 1MG VIAL SC PRN (19:55)
[2022-09-11] MEDS ORDERED: GLUCOSE 4GM CHEW TABLET PO PRN (19:55)
[2022-09-11] MEDS ORDERED: HOME MED LIST COMPLETE! XX SCH (20:00)
[2022-09-11] MEDS ORDERED: INSULIN LISPRO (NovoLOG) PER UNIT SC SCH (21:00)
[2022-09-11] MEDS ORDERED: SIMVASTATIN 40 MG TAB PO SCH (21:00)
[2022-09-11 22:02] VITALS: BP 144/66
[2022-09-11] MEDS: ASPIRIN 81MG ENTERIC TABLET PO SCH (22:02)
[2022-09-11] MEDS: METOPROLOL TART 50 MG TAB PO SCH (22:02)
[2022-09-11] MEDS ORDERED: COMBIVENT RESPIMAT 100-20MCG INHALER 4GM INH PRN (22:40)
[2022-09-11] MEDS: D5W/LR 1,000 ML IV SCH (23:14)
[2022-09-11 23:18] VITALS: BP 141/81; TEMP 97.2; O2SAT 96
[2022-09-12 00:23] LABS: CALCIUM LEVEL 8.2 MG/DL (8.3-10.6); CREATININE FOR GFR 1.27 MG/DL (0.55-1.30); GLOMERULAR FILTRATION RATE 43.2 (>39); POTASSIUM SERUM 3.7 MMOL/L (3.5-5.1)
[2022-09-12] MEDS: REMDESIVIR 200 MG in NS 250 ML IV ONE ×2 (05:35→05:41)
[2022-09-12] MEDS ORDERED: HEPARIN SOD (PORCINE) 5000UNITS/ML 1ML VIAL/SYRINGE SC SCH (06:00)
[2022-09-12 06:58] VITALS: BP 140/80; TEMP 96.6; O2SAT 92
[2022-09-12] MEDS ORDERED: SODIUM CHLORIDE 0.9% INJ 10 ML SYR IV ONE (07:00)
[2022-09-12 07:13] LABS: HEMATOCRIT 39.8 % (36.0-47.0); HEMOGLOBIN 13.1 g/dl (12.0-15.5); MEAN CORPUSCULAR HEMOGLOBIN 30.6 pg (27.0-33.0); MEAN CORPUSCULAR HGB CONC 32.9 g/dl (32.0-36.5); PLATELET COUNT, AUTOMATED 240 10^3/uL (150-450); RED BLOOD COUNT 4.28 10^6/uL (4.00-5.40); WHITE BLOOD COUNT 5.1 10^3/uL (4.0-10.0)
[2022-09-12 07:41] LABS: CREATININE FOR GFR 1.07 MG/DL (0.55-1.30); GLOMERULAR FILTRATION RATE 52.7 (>39); MAGNESIUM LEVEL 1.6 MG/DL (1.8-2.4)
[2022-09-12] MEDS: D5W/LR 1,000 ML IV SCH (08:29)
[2022-09-12] MEDS: INSULIN LISPRO (NovoLOG) PER UNIT SC SCH ×2 (08:31→11:46)
[2022-09-12] MEDS: ASPIRIN 81MG ENTERIC TABLET PO SCH (08:32)
[2022-09-12] MEDS: METOPROLOL TART 50 MG TAB PO SCH (08:32)
[2022-09-12] MEDS ORDERED: MULTIVITAMINS/MINERALS THERAP 1 TAB PO SCH (09:00)
[2022-09-12] MEDS ORDERED: NS 1,000 ML IV SCH (09:05)
[2022-09-12] MEDS: MAG SULF 1GM/100ML (MAG RUN) 1 GM in IV 1 EA IV SCH ×2 (10:27→11:49)
[2022-09-12] MEDS ORDERED: FAMO40TA3 PO (11:41)
[2022-09-12] MEDS ORDERED: PRED20TA PO (11:41)
[2022-09-12] MEDS ORDERED: VENTAER INH (11:42)
[2022-09-12] MEDS ORDERED: COMBIVENT RESPIMAT 100-20MCG INHALER 4GM INH SCH (14:00)
[2022-09-12] MEDS ORDERED: ENOXAPARIN 40MG/0.4ML SYRINGE (J1650 PER 10MG) SC SCH (14:00)
[2022-09-13] MEDS ORDERED: REMDESIVIR 100 MG in NS 250 ML IV SCH (08:00)
[2022-09-13] MEDS ORDERED: PREVNAR-20 VACCINE 0.5ML SYRINGE IM.IMMUN ONE (09:00)
[2022-09-13] MEDS ORDERED: SODIUM CHLORIDE 0.9% INJ 10 ML SYR IV SCH (09:00)
== END 2022-09-12 15:00 | disposition home or self-care (01) ==
LOC: M ED 13:13 → M ED INP 19:08 → ENRESERV 22:30 → M MS5PR 23:05
PROVIDERS: ADMIT Family Medicine; ATTEND Family Medicine
DX: U07.1 COVID-19 (principal); J12.82 Pneumonia due to coronavirus disease 2019; R09.02 Hypoxemia; N17.9 Acute kidney failure, unspecified; E83.42 Hypomagnesemia; R19.7 Diarrhea, unspecified; I10 Essential (primary) hypertension; E11.9 Type 2 diabetes mellitus without complications; E78.5 Hyperlipidemia, unspecified; I73.00 Raynaud's syndrome without gangrene; F32.A Depression, unspecified; Z87.09 Personal history of other diseases of the respiratory system; R06.02 Shortness of breath; Z79.899 Other long term (current) drug therapy; Z79.52 Long term (current) use of systemic steroids; Z79.84 Long term (current) use of oral hypoglycemic drugs; Z88.8 Allergy status to other drugs, medicaments and biological substances
CPT/HCPCS: 36415; 71046; 80047; 80048; 80076; 82550; 82553; 83605; 83735; 83880; 84145; 84484; 85025; 85027; 87040; 87428; 87486; 87507; 87581; 87633; 87798; 87880; 90677; 93005; 96361; 96372; 96374; 96375; 99284; G0378; J0248; J1100; J3475

== ENCOUNTER → 2023-07-01 | Outpatient (CLI) | payer MEDICARE ==
[~2023-07-01] MED LIST changes: +FAMO40TA3 PO; +PRED20TA PO; +VENTAER INH
[2023-07-01 17:51] LABS: ALBUMIN 3.9 G/DL (3.2-5.2); BILIRUBIN,TOTAL 0.6 MG/DL (0.3-1.2); CALCIUM LEVEL 9.5 MG/DL (8.3-10.6); CHOLESTEROL RISK RATIO 1.92 (<5); CREATININE FOR GFR 1.03 MG/DL (0.55-1.30); GLOMERULAR FILTRATION RATE 54.9 (>32); HDL CHOLESTEROL 67.9 MG/DL (>40); LDL CHOLESTEROL 51.1 MG/DL (<100); NON-HDL-C 63.1 MG/DL; POTASSIUM SERUM 4.1 MMOL/L (3.5-5.1); TOTAL PROTEIN 6.6 G/DL (5.7-8.2)
[2023-07-01 17:53] LABS: THYROID STIMULATING HORMONE 1.164 uIU/ML (0.55-4.78)
[2023-07-01 17:58] LABS: BASO # 0.1 10^3/uL (0.0-0.2); EOS # 0.5 10^3/uL (0.0-0.5); HEMATOCRIT 43.1 % (36.0-47.0); HEMOGLOBIN 13.8 g/dl (12.0-15.5); LYMPH # 1.8 10^3/uL (1.5-5.0); LYMPH % 18.6 % (24.0-44.0); MEAN CORPUSCULAR HEMOGLOBIN 31.1 pg (27.0-33.0); MEAN CORPUSCULAR VOLUME 97.1 fl (80.0-96.0); MONO # 1.1 10^3/uL (0.0-0.8); MONO % 11.4 % (2.0-8.0); NEUTROPHILS # 6.2 10^3/uL (1.5-8.5); NEUTROPHILS % 63.8 % (36.0-66.0); PLATELET COUNT, AUTOMATED 199 10^3/uL (150-450); RED BLOOD COUNT 4.44 10^6/uL (4.00-5.40); WHITE BLOOD COUNT 9.8 10^3/uL (4.0-10.0)
[2023-07-01 18:15] LABS: HEMOGLOBIN A1c 5.8 % (4.0-6.0)
== END ==
LOC: M PLALAB 15:52
PROVIDERS: ATTEND Physician Assistant
DX: E78.2 Mixed hyperlipidemia (principal); I10 Essential (primary) hypertension; E11.9 Type 2 diabetes mellitus without complications

== ENCOUNTER → 2024-01-13 | Outpatient (CLI) | payer MEDICARE ==
[2024-01-13 15:47] LABS: BASO # 0.1 10^3/uL (0.0-0.2); BASO % 1.4 % (0.0-1.0); EOS # 0.4 10^3/uL (0.0-0.5); EOS % 5.5 % (0.0-3.0); HEMATOCRIT 41.6 % (36.0-47.0); HEMOGLOBIN 13.5 g/dl (12.0-15.5); LYMPH # 1.9 10^3/uL (1.5-5.0); LYMPH % 23.1 % (24.0-44.0); MEAN CORPUSCULAR HEMOGLOBIN 31.6 pg (27.0-33.0); MEAN CORPUSCULAR HGB CONC 32.5 g/dl (32.0-36.5); MEAN CORPUSCULAR VOLUME 97.4 fl (80.0-96.0); MONO # 1.1 10^3/uL (0.0-0.8); MONO % 13.2 % (2.0-8.0); NEUTROPHILS # 4.5 10^3/uL (1.5-8.5); NEUTROPHILS % 56.6 % (36.0-66.0); PLATELET COUNT, AUTOMATED 191 10^3/uL (150-450); RED BLOOD COUNT 4.27 10^6/uL (4.00-5.40)
[2024-01-13 15:50] LABS: HEMOGLOBIN A1c 5.7 % (4.0-6.0)
[2024-01-13 15:52] LABS: ALBUMIN 3.8 G/DL (3.2-5.2); BILIRUBIN,TOTAL 0.8 MG/DL (0.3-1.2); CALCIUM LEVEL 9.3 MG/DL (8.3-10.6); CREATININE FOR GFR 1.06 MG/DL (0.55-1.30); FERRITIN 79.1 NG/ML (7.3-270.7); GLOMERULAR FILTRATION RATE 53.1 (>32); MAGNESIUM LEVEL 1.8 MG/DL (1.8-2.4); POTASSIUM SERUM 4.1 MMOL/L (3.5-5.1); TOTAL PROTEIN 6.8 G/DL (5.7-8.2)
== END ==
LOC: M PLALAB 12:56
PROVIDERS: ATTEND Physician Assistant
DX: E11.9 Type 2 diabetes mellitus without complications (principal)

== ENCOUNTER → 2024-03-09 | Outpatient (CLI) | payer MEDICARE | LOC: M PLALAB 14:02 | PROVIDERS: ATTEND Physician Assistant Medical | DX: R60.0 Localized edema (principal); R06.00 Dyspnea, unspecified ==

== ENCOUNTER → 2024-06-29 | Outpatient (CLI) | payer MEDICARE ==
[2024-06-29 15:16] LABS: BASO # 0.1 10^3/uL (0.0-0.2); BASO % 0.9 % (0.0-1.0); EOS # 0.4 10^3/uL (0.0-0.5); EOS % 5.1 % (0.0-3.0); HEMATOCRIT 42.4 % (36.0-47.0); HEMOGLOBIN 13.4 g/dl (12.0-15.5); LYMPH # 1.5 10^3/uL (1.5-5.0); LYMPH % 18.6 % (24.0-44.0); MEAN CORPUSCULAR HEMOGLOBIN 30.7 pg (27.0-33.0); MEAN CORPUSCULAR HGB CONC 31.6 g/dl (32.0-36.5); MEAN CORPUSCULAR VOLUME 97.2 fl (80.0-96.0); MONO # 0.9 10^3/uL (0.0-0.8); MONO % 11.3 % (2.0-8.0); NEUTROPHILS # 5.1 10^3/uL (1.5-8.5); NEUTROPHILS % 63.7 % (36.0-66.0); PLATELET COUNT, AUTOMATED 192 10^3/uL (150-450); RED BLOOD COUNT 4.36 10^6/uL (4.00-5.40)
[2024-06-29 15:34] LABS: HEMOGLOBIN A1c 5.9 % (4.0-6.0)
[2024-06-29 15:44] LABS: ALBUMIN 3.7 G/DL (3.2-5.2); ALKALINE PHOSPHATASE 52 U/L (35-104); ALT/SGPT 29 U/L (7.0-40); AST/SGOT 26 U/L (<34); BILIRUBIN,TOTAL 0.6 MG/DL (0.3-1.2); BLOOD UREA NITROGEN 18 MG/DL (9-23); CALCIUM LEVEL 8.7 MG/DL (8.3-10.6); CARBON DIOXIDE LEVEL 30 MMOL/L (20-31); CHLORIDE LEVEL 108 MMOL/L (98-107); CHOLESTEROL LEVEL 130 MG/DL (<200); CREATININE FOR GFR 0.92 MG/DL (0.55-1.30); GLOMERULAR FILTRATION RATE > 60.0 (>32); GLUCOSE, FASTING 84 MG/DL (74-106); HDL CHOLESTEROL 68.2 MG/DL (>40); NON-HDL-C 61.8 MG/DL; POTASSIUM SERUM 4.8 MMOL/L (3.5-5.1); SODIUM LEVEL 144 MMOL/L (136-145); TOTAL PROTEIN 6.8 G/DL (5.7-8.2); TRIGLYCERIDES LEVEL 84 MG/DL (<150)
[2024-06-29 15:45] LABS: FREE T4 1.13 NG/DL (0.89-1.76); THYROID STIMULATING HORMONE 1.966 uIU/ML (0.55-4.78)
== END ==
LOC: M PLALAB 12:04
DX: Z13.29 Encounter for screening for other suspected endocrine disorder (principal); R20.0 Anesthesia of skin; E78.2 Mixed hyperlipidemia; I10 Essential (primary) hypertension; E11.9 Type 2 diabetes mellitus without complications